=== PATIENT | female | born 1945 | race Caucasian/White ===

== ENCOUNTER → 2020-09-29 11:02 | Outpatient (BNVA) | payer OTHER, SELFPAY | PROVIDERS: PCP Internal Medicine; Visit Provider Family Medicine Adult Medicine ==

== ENCOUNTER 2020-09-30 09:26 | Outpatient (REF) | payer OTHER, SELFPAY | END 2020-09-30 09:27 | disposition home or self-care (01) | LOC: HO.LAB 09:26 | PROVIDERS: PCP Internal Medicine; Visit Provider Family Medicine Adult Medicine | DX: Z13.89 Encounter for screening for other disorder (principal) ==

== ENCOUNTER → 2020-10-15 08:43 | Outpatient (BNVA) | payer OTHER, SELFPAY | PROVIDERS: PCP Internal Medicine; Visit Provider Family Medicine Adult Medicine ==

== ENCOUNTER → 2020-10-29 11:00 | Outpatient (BNVA) | payer OTHER, SELFPAY | PROVIDERS: PCP Internal Medicine; Visit Provider Family Medicine Adult Medicine ==

== ENCOUNTER → 2020-11-26 08:28 | Outpatient (BNVA) | payer OTHER, SELFPAY | PROVIDERS: PCP Internal Medicine; Visit Provider Family Medicine Adult Medicine ==

== ENCOUNTER → 2020-12-24 08:55 | Outpatient (BNVA) | payer OTHER, SELFPAY | PROVIDERS: PCP Internal Medicine; Visit Provider Family Medicine Adult Medicine ==

== ENCOUNTER → 2021-01-28 08:54 | Outpatient (BNVA) | payer OTHER, SELFPAY | PROVIDERS: PCP Internal Medicine; Visit Provider Family Medicine Adult Medicine ==

== ENCOUNTER → 2021-02-26 08:21 | Outpatient (BNVA) | payer OTHER, SELFPAY | PROVIDERS: PCP Internal Medicine; Visit Provider Internal Medicine ==

== ENCOUNTER → 2021-03-26 08:27 | Outpatient (BNVA) | payer OTHER, SELFPAY | PROVIDERS: PCP Internal Medicine; Visit Provider Internal Medicine ==

== ENCOUNTER → 2021-04-23 08:46 | Outpatient (BNVA) | payer OTHER, SELFPAY | PROVIDERS: PCP Internal Medicine; Visit Provider Internal Medicine | DX: R00.2 Palpitations (principal); M54.16 Radiculopathy, lumbar region ==

== ENCOUNTER → 2021-05-21 08:56 | Outpatient (BNVA) | payer OTHER, SELFPAY | PROVIDERS: PCP Internal Medicine; Visit Provider Internal Medicine | DX: Z13.89 Encounter for screening for other disorder (principal) ==

== ENCOUNTER → 2021-05-24 09:30 | Outpatient (BNVA) | payer OTHER, SELFPAY | PROVIDERS: PCP Internal Medicine; Visit Provider Internal Medicine | DX: M54.16 Radiculopathy, lumbar region (principal) ==

== ENCOUNTER → 2021-06-14 15:32 | Outpatient (BNVA) | payer OTHER, SELFPAY | PROVIDERS: PCP Internal Medicine; Visit Provider Nurse Practitioner Family | DX: Z13.89 Encounter for screening for other disorder (principal) ==

== ENCOUNTER → 2021-06-21 08:54 | Outpatient (BNVA) | payer OTHER, SELFPAY | PROVIDERS: PCP Internal Medicine; Visit Provider Internal Medicine | DX: Z13.89 Encounter for screening for other disorder (principal) ==

== ENCOUNTER → 2021-07-23 08:58 | Outpatient (BNVA) | payer OTHER, SELFPAY | PROVIDERS: PCP Internal Medicine; Visit Provider Nurse Practitioner Family | DX: Z13.89 Encounter for screening for other disorder (principal) ==

== ENCOUNTER → 2021-09-17 09:10 | Outpatient (BNVA) | payer OTHER, SELFPAY | PROVIDERS: PCP Internal Medicine; Visit Provider Internal Medicine | DX: Z51.81 Encounter for therapeutic drug level monitoring (principal); Z79.899 Other long term (current) drug therapy | CPT/HCPCS: 99211 ==

== ENCOUNTER → 2022-01-07 08:58 | Outpatient (BNVA) | payer OTHER, SELFPAY | PROVIDERS: Visit Provider Internal Medicine | DX: Z51.81 Encounter for therapeutic drug level monitoring (principal); Z79.899 Other long term (current) drug therapy | CPT/HCPCS: 99211 ==

== ENCOUNTER → 2022-03-04 08:41 | Outpatient (BNVA) | payer OTHER, SELFPAY | PROVIDERS: Visit Provider Internal Medicine | DX: M47.816 Spondylosis without myelopathy or radiculopathy, lumbar region (principal) ==

== ENCOUNTER → 2022-04-01 08:53 | Outpatient (BNVA) | payer OTHER, SELFPAY | PROVIDERS: Visit Provider Internal Medicine | DX: Z13.89 Encounter for screening for other disorder (principal) ==

== ENCOUNTER → 2022-04-29 08:55 | Outpatient (BNVA) | payer OTHER, SELFPAY | PROVIDERS: Visit Provider Internal Medicine | DX: Z13.89 Encounter for screening for other disorder (principal) ==

== ENCOUNTER → 2022-05-27 08:57 | Outpatient (BNVA) | payer OTHER, SELFPAY | PROVIDERS: Visit Provider Internal Medicine | DX: Z13.89 Encounter for screening for other disorder (principal) ==

== ENCOUNTER → 2022-06-24 09:09 | Outpatient (BNVA) | payer OTHER, SELFPAY | PROVIDERS: Visit Provider Internal Medicine ==

== ENCOUNTER → 2022-07-22 09:22 | Outpatient (BNVA) | payer OTHER, SELFPAY | PROVIDERS: PCP Internal Medicine; Visit Provider Internal Medicine ==

== ENCOUNTER → 2022-08-19 08:21 | Outpatient (BNVA) | payer OTHER, SELFPAY | PROVIDERS: PCP Internal Medicine; Visit Provider Internal Medicine ==

== ENCOUNTER → 2022-09-16 09:01 | Outpatient (BNVA) | payer OTHER, SELFPAY | PROVIDERS: PCP Internal Medicine; Visit Provider Internal Medicine ==

== ENCOUNTER 2022-10-14 10:23 | Outpatient (AMB) | payer OTHER, SELFPAY ==
[2022-10-14 10:29] VITALS: BP 104/66; PULSE 67; RESP 14; O2SAT 98; BMI 18.2
--- NOTE | 2022-10-14 10:29 | A.OFFVIS_ITS ---
Intake Vital Signs 10/14/22 10:29 Height 5 ft 3 in Weight 103 lb BMI 18.2 BP 104/66 Blood Pressure Location Rt brachial Respiration 14 Pulse 67 Pulse Source Pulse Oximeter Pulse Oximetry (%) 98 Oxygen Delivery Method Room Air Intake Visit Reasons: Pill count Allergies codeine [CODEINE] Allergy (Unknown, Verified 10/14/22 10:30) NAUSEA & VOMITING Antihistamines - Alkylamine Adverse Reaction (Severe, Verified 10/14/22 10:30) heart palpitations Medication List - Last Reconciled 10/14/22 by Melinda Segovia LPN atorvastatin 20 mg PO DAILY calcium carbonate-vitamin D3 600 mg-10 mcg (400 unit) 1 tab PO BID citalopram (Celexa) 20 mg PO DAILY diltiazem HCl ER 120 mg PO DAILY flecainide 100 mg PO BID gabapentin 300 mg PO BEDTIME 30 days naloxone 4 mg/actuation (Narcan) 4 mg intranasal Q2M 1 day oxycodone 15 mg PO Q8H PRN 21 days HPI Pill count HPI Details 76-year-old female is presenting today for a pill count. 3 pills were expected, and 6 pills were presented. The patient is presenting today for a refill of medication. She reports back and neck pain that is bothersome. She has a history of cervical spondylosis. She visited her primary care physician, who recommended physical therapy, which she has not started. She has episodes of withdrawal symptoms between 5 PM and 9 PM in between the oxycodone doses. This is associated with significant pain exacerbation as well. She has been taking oxycodone for the past 20 years. She has a history of kidney disease and cognitive impairment and wants to wean down on oxycodone. She is interested in transitioning to buprenor phine if possible she was previously taking both oxycodone and buprenorphine 300 mcg twice daily prior to stopping the buprenorphine. She was tolerating it well on that dose. She would like to restart with the buprenorphine and rapid up prior to weaning down with the oxycodone to prevent any exacerbation of her pain symptoms. She continues to have reservations regarding interventional therapy due to cost limitations. [facility] Medical History (Updated 08/19/22 @ 09:39 by Victor Manuel Mckeon MD) Anxiety Arthritis Atrial tachycardia Clostridium difficile colitis Depression Fatigue Heart palpitations Insomnia Lumbar radiculitis Opioid dependence Osteoporosis Restless leg Restless legs syndrome (RLS) Surgical History History of creation of ostomy History of partial colectomy Family History Family/Other Alzheimer disease Social History Alcohol intake: never Patient Tobacco Use Status: Former Tobacco user Substance Use Type: Prescription Drugs Review of Systems Const All systems reviewed & are unremarkable except as noted in HPI and below Physical Exam Vital Signs: Last Vital Signs Pulse 67 10/14/22 10:29 Resp 14 10/14/22 10:29 BP 104/66 10/14/22 10:29 Pulse Ox 98 10/14/22 10:29 Oxygen Delivery Method Room Air 10/14/22 10:29 BMI result Body Mass Index 18.2 General: Appears afebrile. Alert and oriented. Mood and affect appropriate. Follows and participates in conversation appropriately. Respiratory effort is unlabored. Able to transition from sit to stand unassisted. Ambulates with bilaterally normal heel strike and toe off. Results Reviewed Results Reviewed: No imaging is available for review. 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 3 pills were expected, and 6 pills were presented. 2. Prescribed 60 films of the Belbuca 150 mcg b.i.d. and 90 tablets of the oxycodone 15 mg t.i.d. for pain management. Will consider increasing Belbuca to 300 mcg b.i.d. on next refill. 3. Pill count and Mass Pat was consistent. 4. The patient will follow up in four weeks for pill count on the nursing schedule. Scribed for Dr. Mckeon by Pablo Cohen, medical billing and coding specialist, on 10/14/2022. I, Dr. Mckeon, have personally reviewed and agree with the information entered by the scribe. Medications: New buprenorphine HCl 150 mcg buccal Q12H 60 ea 0RF Changed From oxycodone Partial Fill upon patient request. 15 mg PO Q8H 21 days PRN 63 tabs 0RF pain, severe G89.4 - Chronic pain syndrome, M54.16 - Radiculopathy, lumbar region To oxycodone Partial Fill upon patient request. 15 mg PO Q8H PRN 90 tabs 0RF pain, severe 30 days G89.4 - Chronic pain syndrome, M54.16 - Radiculopathy, lumbar region Coding Level of Care Code Est Pt Level 4 (00184) Diagnoses [facility] current use of opiate analgesic Z79.891 Pain syndrome, chronic G89.4
== END 2022-10-14 10:59 | disposition home or self-care (01) ==
PROVIDERS: PCP Internal Medicine; Visit Provider Internal Medicine
DX: G89.4 Chronic pain syndrome (principal); Z79.891 Long term (current) use of opiate analgesic
CPT/HCPCS: 99214

== ENCOUNTER → 2022-10-14 10:23 | Outpatient (BNVA) | payer OTHER, SELFPAY | PROVIDERS: PCP Internal Medicine; Visit Provider Internal Medicine ==

== ENCOUNTER 2022-11-11 10:08 | Outpatient (AMB) | payer OTHER, SELFPAY ==
[2022-11-11 10:15] VITALS: BP 136/61; PULSE 68; RESP 14; O2SAT 98; BMI 18.2
--- NOTE | 2022-11-11 10:15 | MHC.OFFVIS ---
Intake Vital Signs 11/11/22 10:15 Height 5 ft 3 in Weight 103 lb BMI 18.2 BP 136/61 Blood Pressure Location Lt brachial Position Sitting Respiration 14 Pulse 68 Pulse Source Pulse Oximeter Pulse Oximetry (%) 98 Oxygen Delivery Method Room Air Intake Visit Reasons: PILL COUNT/ random UDS Intake Note: Pt states she last took oxy 11/11/22 @ 5am, and Belbuca 11/10/22 @ 9pm. Pt is being sent for a random UDS. She is aware she will do this at the conclusion of todays visit Allergies codeine [CODEINE] Allergy (Unknown, Verified 11/11/22 10:16) NAUSEA & VOMITING Antihistamines - Alkylamine Adverse Reaction (Severe, Verified 11/11/22 10:16) heart palpitations Medication List - Last Reconciled 11/11/22 by Melinda Segovia LPN atorvastatin 20 mg PO DAILY buprenorphine HCl 150 mcg buccal Q12H calcium carbonate-vitamin D3 600 mg-10 mcg (400 unit) 1 tab PO BID citalopram (Celexa) 20 mg PO DAILY diltiazem HCl ER 120 mg PO DAILY flecainide 100 mg PO BID gabapentin 300 mg PO BEDTIME 30 days naloxone 4 mg/actuation (Narcan) 4 mg intranasal Q2M 1 day oxycodone 15 mg PO Q8H PRN 30 days HPI PILL COUNT/ random UDS HPI Details 76-year-old female who presents today to the office for a pill count and random UDS. 6 pills were expected, and 16 pills were presented of oxycodone. 4 films were expected, and 20 films were presented of belbuca. She seems to have tolerated the addition of Belbuca well and is amenable to titrating it up. She feels that her interval pain in between doses has decreased and she is feeling less of the withdrawal symptoms that she used to with oxycodone. [facility] Medical History (Updated 08/19/22 @ 09:39 by Victor Manuel Mckeon MD) Insomnia Restless legs syndrome (RLS) Clostridium difficile colitis Opioid dependence Depression Lumbar radiculitis Osteoporosis Atrial tachycardia Anxiety Fatigue Heart palpitations Arthritis Restless leg Surgical History History of creation of ostomy History of partial colectomy Family History Family/Other Alzheimer disease Social History Alcohol intake: never Patient Tobacco Use Status: Former Tobacco user Substance Use Type: Prescription Drugs Review of Systems Const All systems reviewed & are unremarkable except as noted in HPI and below Physical Exam Vital Signs: Last Vital Signs Pulse 68 11/11/22 10:15 Resp 14 11/11/22 10:15 BP 136/61 11/11/22 10:15 Pulse Ox 98 11/11/22 10:15 Oxygen Delivery Method Room Air 11/11/22 10:15 BMI result Body Mass Index 18.2 General: Appears afebrile. Alert and oriented. Mood and affect appropriate. Follows and participates in conversation appropriately. Respiratory effort is unlabored. Able to transition from sit to stand unassisted. Ambulates with bilaterally normal heel strike and toe off. Results Reviewed Results Reviewed: No imaging is available for review. 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 Pill count and Mass Pat was consistent. No recent changes in health. Follow-up per schedule for pill count and refills. Scribed for Dr. Mckeon by Pablo Cohen, medical reviewer, on 11/11/2022. I, Dr. Mckeon, have personally reviewed and agree with the information entered by the scribe. Medications: New buprenorphine HCl Fill date 11/14/22, partial fill ok 300 mcg buccal Q12H 60 ea 0RF Refilled oxycodone Partial Fill upon patient request. 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
== END 2022-11-11 10:41 | disposition home or self-care (01) ==
PROVIDERS: PCP Internal Medicine; Visit Provider Internal Medicine
DX: G89.4 Chronic pain syndrome (principal); Z79.891 Long term (current) use of opiate analgesic
CPT/HCPCS: 99213

== ENCOUNTER → 2022-11-11 10:08 | Outpatient (BNVA) | payer OTHER, SELFPAY | PROVIDERS: PCP Internal Medicine; Visit Provider Internal Medicine ==

== ENCOUNTER 2022-12-05 08:47 | Outpatient (AMB) | payer OTHER, SELFPAY ==
--- NOTE | 2022-12-05 08:56 | MHC.OFFVIS ---
Intake Vital Signs 12/05/22 08:57 Height 5 ft 3 in Weight 103 lb BMI 18.2 Blood Pressure Location Lt brachial Position Sitting Respiration 14 Pulse 71 Pulse Source Pulse Oximeter Pulse Oximetry (%) 95 Oxygen Delivery Method Room Air Intake Visit Reasons: pill count/UDS review Intake Note: Pt states she last took belbuca 12/04/22 @ 10pm and oxy 12/05/22 @ 5am Allergies codeine [CODEINE] Allergy (Unknown, Verified 12/05/22 08:58) NAUSEA & VOMITING Antihistamines - Alkylamine Adverse Reaction (Severe, Verified 12/05/22 08:58) heart palpitations Medication List - Last Reconciled 12/05/22 by Melinda Segovia LPN atorvastatin 20 mg PO DAILY buprenorphine HCl 300 mcg buccal Q12H calcium carbonate-vitamin D3 600 mg-10 mcg (400 unit) 1 tab PO BID citalopram (Celexa) 20 mg PO DAILY diltiazem HCl ER 120 mg PO DAILY flecainide 100 mg PO BID gabapentin 300 mg PO BEDTIME 30 days naloxone 4 mg/actuation (Narcan) 4 mg intranasal Q2M 1 day oxycodone 15 mg PO Q8H PRN 30 days HPI pill count/UDS review HPI Details 77-year-old female who presents today to the office for a pill count. 27 pills were expected, and 30 pills were presented of oxycodone. 18 films were expected, and 19 films were presented of belbuca. The patient notes mild fatigue and increased tiredness since starting buprenorphine. She is taking Belbuca and oxycodone at the same time. Her withdrawal symptoms have resolved. Her restless leg syndrome symptom have also improved. She also had an episode of a nightmare, which is something new she has been experiencing lately. Her drug screen was within normal limits. [facility] Medical History (Updated 08/19/22 @ 09:39 by Victor Manuel Mckeon MD) Insomnia Restless legs syndrome (RLS) Clostridium difficile colitis Opioid dependence Depression Lumbar radiculitis Osteoporosis Atrial tachycardia Anxiety Fatigue Heart palpitations Arthritis Restless leg Surgical History History of creation of ostomy History of partial colectomy Family History Family/Other Alzheimer disease Social History Alcohol intake: never Patient Tobacco Use Status: Former Tobacco user Substance Use Type: Prescription Drugs Review of Systems Const All systems reviewed & are unremarkable except as noted in HPI and below Physical Exam Vital Signs: Last Vital Signs Pulse 71 12/05/22 08:57 Resp 14 12/05/22 08:57 Pulse Ox 95 12/05/22 08:57 Oxygen Delivery Method Room Air 12/05/22 08:57 BMI result Body Mass Index 18.2 General: Appears afebrile. Alert and oriented. Mood and affect appropriate. Follows and participates in conversation appropriately. Respiratory effort is unlabored. Able to transition from sit to stand unassisted. Ambulates with bilaterally normal heel strike and toe off. Results Reviewed Results Reviewed: No imaging is available for review. 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 18 films were expected, and 19 films were presented of belbuca. Mass Pat and UDS were consistent. Refilled oxycodone 15 mg T.I.D and Belbuca 300 mcg B.I.D. starting 12/14/2022. Given the balance of mild side effects and improvement in withdrawal/are less symptoms, we will continue with the 300 mcg Belbuca dose for now. No recent changes in health. Follow-up in four weeks for pill count and refills. Scribed for Dr. Mckeon by Pablo Cohen, medical driver, on 12/05/2022. I, Dr. Mckeon, have personally reviewed and agree with the information entered by the scribe. Medications: Changed From buprenorphine HCl Fill date 11/14/22, partial fill ok 300 mcg buccal Q12H 60 ea 0RF To buprenorphine HCl Fill date 12/14/22, partial fill ok 300 mcg buccal Q12H 60 ea 0RF From oxycodone Partial Fill upon patient request. 15 mg PO Q8H 30 days PRN 90 tabs 0RF pain, severe G89.4 - Chronic pain syndrome, M54.16 - Radiculopathy, lumbar region To oxycodone Partial Fill upon patient request. 15 mg PO Q8H 30 days PRN 90 tabs 0RF pain, severe G89.4 - Chronic pain syndrome, M54.16 - Radiculopathy, lumbar region Refilled oxycodone Partial Fill upon patient request. 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
[2022-12-05 08:57] VITALS: PULSE 71; RESP 14; O2SAT 95; BMI 18.2
== END 2022-12-05 09:16 | disposition home or self-care (01) ==
PROVIDERS: PCP Internal Medicine; Visit Provider Internal Medicine
DX: Z79.891 Long term (current) use of opiate analgesic (principal)
CPT/HCPCS: 99213

== ENCOUNTER → 2022-12-05 08:47 | Outpatient (BNVA) | payer OTHER, SELFPAY | PROVIDERS: PCP Internal Medicine; Visit Provider Internal Medicine ==

== ENCOUNTER 2023-01-02 08:54 | Outpatient (AMB) | payer OTHER, SELFPAY ==
[2023-01-02 09:07] VITALS: BMI 18.1
--- NOTE | 2023-01-02 09:07 | A.OFFVIS_ITS ---
Intake Vital Signs 01/02/23 09:07 Height 5 ft 3 in Weight 102 lb BMI 18.1 Intake Visit Reasons: Medication Count/confirmed Allergies codeine [CODEINE] Allergy (Unknown, Verified 12/05/22 08:58) NAUSEA & VOMITING Antihistamines - Alkylamine Adverse Reaction (Severe, Verified 12/05/22 08:58) heart palpitations HPI Medication Count/confirmed HPI Details 77-year-old female who presents today to the office for a medication count. 33 pills were expected, and 32 pills wer e presented of oxycodone. 24 films were expected, and 28 films wer e presented of belbuca. She is compliant with her medication and tolerating it well. She is overall doing well. She states that medication helps her to take the edge off. She states that Belbuca helps her with withdrawal symptoms and anxiety. She is also interested in trialing off gabapentin to see if it helps with her word-finding difficulty. She noticed occasional confusion, difficulty completing tasks, or difficulty finding words during conversation. She suspects that her symptoms are associated with her old age. [facility] Medical History (Updated 08/19/22 @ 09:39 by Victor Manuel Mckeon MD) Insomnia Restless legs syndrome (RLS) Clostridium difficile colitis Opioid dependence Depression Lumbar radiculitis Osteoporosis Atrial tachycardia Anxiety Fatigue Heart palpitations Arthritis Restless leg Surgical History History of creation of ostomy History of partial colectomy Family History Family/Other Alzheimer disease Social History Alcohol intake: never Patient Tobacco Use Status: Former Tobacco user Substance Use Type: Prescription Drugs Review of Systems Const All systems reviewed & are unremarkable except as noted in HPI and below Physical Exam Vital Signs: BMI result Body Mass Index 18.1 General: Appears afebrile. Alert and oriented. Mood and affect appropriate. Follows and participates in conversation appropriately. Respiratory effort is unlabored. Able to transition from sit to stand unassisted. Ambulates with bilaterally normal heel strike and toe off. Results Reviewed Results Reviewed: No imaging is available for review. 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 24 films were expected, and 28 films were presented of belbuca. Mass Pat and UDS were consistent. Refilled oxycodone 15 mg T.I.D and Belbuca 300 mcg B.I.D. starting 12/14/22 . Follow-up in four weeks for pill count and refills. Also refilled gabapentin; patient will hold off for 1 week and see how she does in terms of her mental alertness and pain control. She will fill her gabapentin if she feels that stopping it increases her pain and does not make a difference to her mental alertness. Scribed for Dr. Mckeon by Pablo Cohen, internist medical doctor md, on 01/02/2023. I, Dr. Mckeon, have personally reviewed and agree with the information entered by the scribe. Medications: Changed From buprenorphine HCl Fill date 12/14/22, partial fill ok 300 mcg buccal Q12H 60 ea 0RF To buprenorphine HCl Fill date 01/14/23, partial fill ok 300 mcg buccal Q12H 60 ea 0RF Refilled 2 gabapentin 1 cap at 10pm , 1 cap at 11.30 pm 300 mg PO BEDTIME 60 caps 5RF pain 30 days F11.20 - Opioid dependence, uncomplicated, G25.81 - Restless legs syndrome, G89.4 - Chronic pain syndrome, M54.16 - Radiculopathy, lumbar region buprenorphine HCl Fill date 12/14/22, partial fill ok 300 mcg buccal Q12H 60 ea 0RF oxycodone Partial Fill upon patient request. 15 mg PO Q8H PRN 90 tabs 0RF pain, severe 30 days G89.4 - Chronic pain syndrome, M54.16 - Radiculopathy, lumbar region Coding Level of Care Code Est Pt Level 4 (16040) Diagnoses long-term current use of opiate analgesic Z79.891 Restless legs syndrome (RLS) G25.81 Chronic left sacroiliac pain M53.3; G89.29 Lumbar spondylosis M47.816
== END 2023-01-02 09:25 | disposition home or self-care (01) ==
PROVIDERS: PCP Internal Medicine; Visit Provider Internal Medicine
DX: G25.81 Restless legs syndrome (principal); M53.3 Sacrococcygeal disorders, not elsewhere classified; G89.29 Other chronic pain; Z79.891 Long term (current) use of opiate analgesic; M47.816 Spondylosis without myelopathy or radiculopathy, lumbar region
CPT/HCPCS: 99214

== ENCOUNTER → 2023-01-02 08:54 | Outpatient (BNVA) | payer OTHER, SELFPAY | PROVIDERS: PCP Internal Medicine; Visit Provider Internal Medicine ==

== ENCOUNTER 2023-01-30 09:31 | Outpatient (AMB) | payer OTHER, SELFPAY ==
[2023-01-30 09:36] VITALS: PULSE 74; RESP 12; O2SAT 98; BMI 18.1
--- NOTE | 2023-01-30 09:36 | MHC.OFFVIS ---
Intake Vital Signs 01/30/23 09:36 Height 5 ft 3 in Weight 102 lb BMI 18.1 Blood Pressure Location Lt brachial Position Sitting Respiration 12 Pulse 74 Pulse Source Pulse Oximeter Pulse Oximetry (%) 98 Oxygen Delivery Method Room Air Intake Visit Reasons: Medication Count/LMOVM Allergies codeine [CODEINE] Allergy (Unknown, Verified 12/05/22 08:58) NAUSEA & VOMITING Antihistamines - Alkylamine Adverse Reaction (Severe, Verified 12/05/22 08:58) heart palpitations HPI Medication Count/LMOVM HPI Details 77-year-old female who presents today to the office for a medication count. The pills count was consistent. She had good relief after starting Belbuca, but after some time, its not working well. She had withdrawal symptoms. Her restless leg syndrome worsened. She is currently on Belbuca as directed and an oxycodone half tablet as needed. She occasionally takes gabapentin as needed. The patient states that her pain is the same as before. She tried discontinuing gabapentin, and her dizziness and balance issues improved. [facility] Medical History (Updated 08/19/22 @ 09:39 by Victor Manuel Mckeon MD) Insomnia Restless legs syndrome (RLS) Clostridium difficile colitis Opioid dependence Depression Lumbar radiculitis Osteoporosis Atrial tachycardia Anxiety Fatigue Heart palpitations Arthritis Restless leg Surgical History History of creation of ostomy History of partial colectomy Family History Family/Other Alzheimer disease Social History Alcohol intake: never Patient Tobacco Use Status: Former Tobacco user Substance Use Type: Prescription Drugs Review of Systems Const All systems reviewed & are unremarkable except as noted in HPI and below Physical Exam Vital Signs: Last Vital Signs Pulse 74 01/30/23 09:36 Resp 12 01/30/23 09:36 Pulse Ox 98 01/30/23 09:36 Oxygen Delivery Method Room Air 01/30/23 09:36 BMI result Body Mass Index 18.1 General: Appears afebrile. Alert and oriented. Mood and affect appropriate. Follows and participates in conversation appropriately. Respiratory effort is unlabored. Able to transition from sit to stand unassisted. Ambulates with bilaterally normal heel strike and toe off. Results Reviewed Results Reviewed: No imaging is available for review. 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 Mass Pat and UDS were consistent. Refilled oxycodone 15 mg T.I.D. Increased Belbuca to 450 mcg B.I.D. Follow-up in four weeks for pill count and refills. Monitor for psychologic side effects. Agree with intermittent gabapentin as needed. Scribed for Dr. Mckeon by Pablo Cohen, medical sales consultant, on 01/30/2023. I, Dr. Mckeon, have personally reviewed and agree with the information entered by the scribe. Medications: New buprenorphine HCl Fill date 02/15/23 450 mcg buccal Q12H 60 ea 0RF Refilled oxycodone Partial Fill upon patient request. 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
== END 2023-01-30 09:48 | disposition home or self-care (01) ==
PROVIDERS: PCP Internal Medicine; Visit Provider Internal Medicine
DX: G25.81 Restless legs syndrome (principal); M47.816 Spondylosis without myelopathy or radiculopathy, lumbar region; M47.812 Spondylosis without myelopathy or radiculopathy, cervical region; Z79.891 Long term (current) use of opiate analgesic
CPT/HCPCS: 99214

== ENCOUNTER → 2023-01-30 09:31 | Outpatient (BNVA) | payer OTHER, SELFPAY | PROVIDERS: PCP Internal Medicine; Visit Provider Internal Medicine ==

== ENCOUNTER 2023-02-27 08:58 | Outpatient (AMB) | payer OTHER, SELFPAY ==
[2023-02-27 09:21] VITALS: BP 129/67; PULSE 76; RESP 12; O2SAT 97; BMI 18.1
--- NOTE | 2023-02-27 09:21 | MHC.OFFVIS ---
Intake Vital Signs 02/27/23 09:21 Height 5 ft 3 in Weight 102 lb BMI 18.1 BP 129/67 Blood Pressure Location Lt brachial Position Sitting Respiration 12 Pulse 76 Pulse Source Pulse Oximeter Pulse Oximetry (%) 97 Oxygen Delivery Method Room Air Intake Visit Reasons: Medication Count/lvm Intake Note: Pt states she last took oxy 02/27/23 @ 4am, and belbuca 02/26/23 @ 11pm Allergies codeine [CODEINE] Allergy (Unknown, Verified 02/27/23 09:23) NAUSEA & VOMITING Antihistamines - Alkylamine Adverse Reaction (Severe, Verified 02/27/23 09:23) heart palpitations Medication List - Last Reconciled 02/27/23 by Melinda Segovia LPN atorvastatin 20 mg PO DAILY buprenorphine HCl 450 mcg buccal Q12H calcium carbonate-vitamin D3 600 mg-10 mcg (400 unit) 1 tab PO BID citalopram (Celexa) 20 mg PO DAILY diltiazem HCl ER 120 mg PO DAILY flecainide 100 mg PO BID gabapentin 300 mg PO BEDTIME 30 days naloxone 4 mg/actuation (Narcan) 4 mg intranasal Q2M 1 day oxycodone 15 mg PO Q8H PRN 30 days HPI Medication Count/lvm HPI Details 77-year-old female who presents today to the office for a medication count. 48 pills were expected, and 47 pills were presented of oxycodone. 38 films were expected, and 40 films were presented of belbuca. The patient has been feeling more tired and confused since starting the new dose of belbuca. She is continuing oxycodone T.I.D.. She inquired about trying buprenorphine alternatives instead of an oral Belbuca given some recent issues with dental fillings falling out and tooth decay. She has been following up with her dentist regularly. [facility] Medical History (Updated 08/19/22 @ 09:39 by Victor Manuel Mckeon MD) Insomnia Restless legs syndrome (RLS) Clostridium difficile colitis Opioid dependence Depression Lumbar radiculitis Osteoporosis Atrial tachycardia Anxiety Fatigue Heart palpitations Arthritis Restless leg Surgical History History of creation of ostomy History of partial colectomy Family History Family/Other Alzheimer disease Social History Alcohol intake: never Patient Tobacco Use Status: Former Tobacco user Substance Use Type: Prescription Drugs Review of Systems Const All systems reviewed & are unremarkable except as noted in HPI and below Physical Exam Vital Signs: Last Vital Signs Pulse 76 02/27/23 09:21 Resp 12 02/27/23 09:21 BP 129/67 02/27/23 09:21 Pulse Ox 97 02/27/23 09:21 Oxygen Delivery Method Room Air 02/27/23 09:21 BMI result Body Mass Index 18.1 General: Appears afebrile. Alert and oriented. Mood and affect appropriate. Follows and participates in conversation appropriately. Respiratory effort is unlabored. Able to transition from sit to stand unassisted. Ambulates with bilaterally normal heel strike and toe off. Results Reviewed Results Reviewed: No imaging is available for review. 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 Code(s): F11.20 - Opioid dependence, uncomplicated (4) Lumbar spondylosis: Code(s): M47.816 - Spondylosis without myelopathy or radiculopathy, lumbar region (5) Chronic left sacroiliac pain: Code(s): M53.3 - Sacrococcygeal disorders, not elsewhere classified; G89.29 - Other chronic pain Plan 48 pills were expected, and 47 pills were presented of oxycodone. 38 films were expected, and 40 films were presented of belbuca. Mass Pat and UDS were consistent. Refilled oxycodone 15 mg T.I.D starting 03/16. Replace Belbuca 450 mcg q.12 hours with Butrans 10 microgram/hour patch. Prescribed 4 patches starting 03/16. Scribed for Dr. Mckeon by Pablo Cohen, medical engineer, on 02/27/2022. I, Dr. Mckeon, have personally reviewed and agree with the information entered by the scribe. Medications: New buprenorphine 10 mcg/hour (Butrans) 1 patch transdermal Q7D 4 ea 0RF Refilled oxycodone Partial Fill upon patient request. 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
== END 2023-02-27 09:57 | disposition home or self-care (01) ==
PROVIDERS: PCP Internal Medicine; Visit Provider Internal Medicine
DX: G89.29 Other chronic pain (principal); Z79.891 Long term (current) use of opiate analgesic; M47.816 Spondylosis without myelopathy or radiculopathy, lumbar region; M47.812 Spondylosis without myelopathy or radiculopathy, cervical region; M53.3 Sacrococcygeal disorders, not elsewhere classified
CPT/HCPCS: 99214

== ENCOUNTER → 2023-02-27 08:58 | Outpatient (BNVA) | payer OTHER, SELFPAY | PROVIDERS: PCP Internal Medicine; Visit Provider Internal Medicine ==

== ENCOUNTER 2023-03-27 09:13 | Outpatient (AMB) | payer OTHER, SELFPAY ==
--- NOTE | 2023-03-27 09:29 | MHC.OFFVIS ---
Intake Vital Signs 03/27/23 09:30 Height 5 ft 3 in Weight 104 lb BMI 18.4 BP 119/60 Blood Pressure Location Lt brachial Position Sitting Respiration 12 Pulse 83 Pulse Source Pulse Oximeter Pulse Oximetry (%) 96 Oxygen Delivery Method Room Air Intake Visit Reasons: PILL COUNT/lvm Intake Note: Pt states she last took oxy 03/27/23 @ 7am, and is currently wearing a patch Allergies codeine [CODEINE] Allergy (Unknown, Verified 03/27/23 09:31) NAUSEA & VOMITING Antihistamines - Alkylamine Adverse Reaction (Severe, Verified 03/27/23 09:31) heart palpitations Medication List - Last Reconciled 03/27/23 by Melinda Segovia LPN atorvastatin 20 mg PO DAILY buprenorphine 15 mcg/hour (Butrans) 1 patch transdermal Q7D calcium carbonate-vitamin D3 600 mg-10 mcg (400 unit) 1 tab PO BID citalopram (Celexa) 20 mg PO DAILY diltiazem HCl ER 120 mg PO DAILY flecainide 100 mg PO BID gabapentin 300 mg PO BEDTIME 30 days naloxone 4 mg/actuation (Narcan) 4 mg intranasal Q2M 1 day oxycodone 15 mg PO Q8H PRN 30 days HPI PILL COUNT/lvm HPI Details 77-year-old female who presents today to the office for a pill count. 54 pills were expected, and 53 pills were presented of oxycodone. 2 patches were expected, and 2 patches were presented of Butrans. She has started taking Butrans. She noticed an increased memory/cognition side effect after taking Butrans compared to Belbuca. She also noticed red discoloration of the skin after applying the topical patch for the first time, which eventually resolved on its own. She has difficulty voiding. She had diarrhea last week. She had a history of C. diff and had an ileostomy about 8 years ago. She does not want to increase the dose of Butrans and oxycodone. [facility] Medical History (Updated 08/19/22 @ 09:39 by Victor Manuel Mckeon MD) Insomnia Restless legs syndrome (RLS) Clostridium difficile colitis Opioid dependence Depression Lumbar radiculitis Osteoporosis Atrial tachycardia Anxiety Fatigue Heart palpitations Arthritis Restless leg Surgical History History of creation of ostomy History of partial colectomy Family History Family/Other Alzheimer disease Social History Alcohol intake: never Patient Tobacco Use Status: Former Tobacco user Substance Use Type: Prescription Drugs Review of Systems Const All systems reviewed & are unremarkable except as noted in HPI and below Physical Exam Vital Signs: Last Vital Signs Pulse 83 03/27/23 09:30 Resp 12 03/27/23 09:30 BP 119/60 03/27/23 09:30 Pulse Ox 96 03/27/23 09:30 Oxygen Delivery Method Room Air 03/27/23 09:30 BMI result Body Mass Index 18.4 General: Appears afebrile. Alert and oriented. Mood and affect appropriate. Follows and participates in conversation appropriately. Respiratory effort is unlabored. Able to transition from sit to stand unassisted. Ambulates with bilaterally normal heel strike and toe off. Results Reviewed Results Reviewed: No imaging is available for review. 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 Code(s): F11.20 - Opioid dependence, uncomplicated Plan 54 pills were expected, and 53 pills were presented of oxycodone. 2 patches were expected, and 2 patches were presented of Butrans. Mass Pat was consistent. Refilled oxycodone 15 mg T.I.D and Butrans 15 microgram/hour patch; starting 04/14/23. I do not think we should increase her dosage of either medication at this time. The patient is in agreement. Scribed for Dr. Mckeon by Pablo Cohen, medical office supervisor, on 03/27/2023. I, Dr. Mckeon, have personally reviewed and agree with the information entered by the scribe. Medications: Changed From buprenorphine 15 mcg/hour (Butrans) 1 patch transdermal Q7D 4 ea 0RF To buprenorphine 15 mcg/hour (Butrans) Fill date 04/14/23 1 patch transdermal QWEEK 4 ea 0RF Refilled oxycodone Partial Fill upon patient request. 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
[2023-03-27 09:30] VITALS: BP 119/60; PULSE 83; RESP 12; O2SAT 96; BMI 18.4
== END 2023-03-27 09:45 | disposition home or self-care (01) ==
PROVIDERS: PCP Internal Medicine; Visit Provider Internal Medicine
DX: G89.29 Other chronic pain (principal); M53.3 Sacrococcygeal disorders, not elsewhere classified; M47.816 Spondylosis without myelopathy or radiculopathy, lumbar region; Z79.891 Long term (current) use of opiate analgesic; M47.812 Spondylosis without myelopathy or radiculopathy, cervical region
CPT/HCPCS: 99214

== ENCOUNTER → 2023-03-27 09:13 | Outpatient (BNVA) | payer OTHER, SELFPAY | PROVIDERS: PCP Internal Medicine; Visit Provider Internal Medicine ==

== ENCOUNTER 2023-04-24 09:27 | Outpatient (AMB) | payer OTHER, SELFPAY ==
--- NOTE | 2023-04-24 09:28 | MHC.OFFVIS ---
Intake Vital Signs 04/24/23 09:30 Height 5 ft 3 in Weight 104 lb BMI 18.4 BP 134/64 Blood Pressure Location Lt brachial Position Sitting Respiration 12 Pulse 79 Pulse Source Pulse Oximeter Pulse Oximetry (%) 99 Oxygen Delivery Method Room Air Intake Visit Reasons: PILL COUNT Intake Note: Pt states she is currently wearing a patch, and lst took oxy 04/24/23 @ 6am Allergies codeine [CODEINE] Allergy (Unknown, Verified 04/24/23 09:32) NAUSEA & VOMITING Antihistamines - Alkylamine Adverse Reaction (Severe, Verified 04/24/23 09:32) heart palpitations Medication List - Last Reconciled 04/24/23 by Melinda Segovia LPN atorvastatin 20 mg PO DAILY buprenorphine 15 mcg/hour (Butrans) 1 patch transdermal QWEEK calcium carbonate-vitamin D3 600 mg-10 mcg (400 unit) 1 tab PO BID citalopram (Celexa) 20 mg PO DAILY diltiazem HCl ER 120 mg PO DAILY flecainide 100 mg PO BID gabapentin 300 mg PO BEDTIME 30 days naloxone 4 mg/actuation (Narcan) 4 mg intranasal Q2M 1 day oxycodone 15 mg PO Q8H PRN 30 days HPI PILL COUNT HPI Details 77-year-old female who presents today to the office for a pill count. 60 pills were expected, and 59 pills were presented of oxycodone. 3 patches were expected, and 2 patches were presented of Butrans. She states that her pharmacy delayed filling her refills, and she has to wait for 3?4 days to receive a new refill. She suspects that oxycodone suppresses the Butrans. She noticed side effects and allergic reactions with the use of Butrans, including skin reaction, palpitations, cold sore, stress, and the worsening of her depression and forgetfulness. She is unable to lay down on her back. She also reports neck pain. She has not tried dilaudid in the past. [facility] Medical History (Updated 08/19/22 @ 09:39 by Victor Manuel Mckeon MD) Insomnia Restless legs syndrome (RLS) Clostridium difficile colitis Opioid dependence Depression Lumbar radiculitis Osteoporosis Atrial tachycardia Anxiety Fatigue Heart palpitations Arthritis Restless leg Surgical History History of creation of ostomy History of partial colectomy Family History Family/Other Alzheimer disease Social History Alcohol intake: never Patient Tobacco Use Status: Former Tobacco user Substance Use Type: Prescription Drugs Review of Systems Const All systems reviewed & are unremarkable except as noted in HPI and below Physical Exam Vital Signs: Last Vital Signs Pulse 79 04/24/23 09:30 Resp 12 04/24/23 09:30 BP 134/64 04/24/23 09:30 Pulse Ox 99 04/24/23 09:30 Oxygen Delivery Method Room Air 04/24/23 09:30 BMI result Body Mass Index 18.4 General: Appears afebrile. Alert and oriented. Mood and affect appropriate. Follows and participates in conversation appropriately. Respiratory effort is unlabored. Able to transition from sit to stand unassisted. Ambulates with bilaterally normal heel strike and toe off. Results Reviewed Results Reviewed: No imaging is available for review. 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 Code(s): F11.20 - Opioid dependence, uncomplicated (3) Pain syndrome, chronic: Code(s): G89.4 - Chronic pain syndrome Plan 60 pills were expected, and 59 pills of oxycodone were presented. 3 patches were expected, and 2 patches were presented for Butrans. Mass Pat was consistent. Refilled oxycodone 15 mg T.I.D. Recommended that she discontinue taking Butrans due to allergies and side effects without any noticeable relief. She will continue with the same dose of oxycodone for now. We will follow up in one month. Discussed rotation to Dilaudid in the future given the lack of relief from her oxycodone. Scribed for Dr. Mckeon by Pablo Cohen, medical pathologist, on 04/24/2023. I, Dr. Mckeon, have personally reviewed and agree with the information entered by the scribe. Medications: Refilled oxycodone Partial Fill upon patient request. 15 mg PO Q8H PRN 90 tabs 0RF pain, severe 30 days G89.4 - Chronic pain syndrome, M54.16 - Radiculopathy, lumbar region Discontinued buprenorphine 15 mcg/hour (Butrans) Fill date 04/14/23 Discontinued Reason: Patient Completed Course 1 patch transdermal QWEEK 4 ea 0RF Coding Level of Care Code Est Pt Level 4 (10034) Diagnoses [facility] current use of opiate analgesic Z79.891 Opioid dependence F11.20 Pain syndrome, chronic G89.4
[2023-04-24 09:30] VITALS: BP 134/64; PULSE 79; RESP 12; O2SAT 99; BMI 18.4
== END 2023-04-24 09:49 | disposition home or self-care (01) ==
PROVIDERS: PCP Internal Medicine; Visit Provider Internal Medicine
DX: G89.4 Chronic pain syndrome (principal); Z79.891 Long term (current) use of opiate analgesic
CPT/HCPCS: 99214

== ENCOUNTER → 2023-04-24 09:27 | Outpatient (BNVA) | payer OTHER, SELFPAY | PROVIDERS: PCP Internal Medicine; Visit Provider Internal Medicine ==

== ENCOUNTER 2023-05-22 09:36 | Outpatient (AMB) | payer OTHER, SELFPAY ==
[2023-05-22 09:44] VITALS: BP 136/64; PULSE 79; RESP 12; O2SAT 99; BMI 18.4
--- NOTE | 2023-05-22 09:44 | A.OFFVIS_ITS ---
Vital Signs 05/22/23 09:44 Height 5 ft 3 in Weight 104 lb BMI 18.4 BP 136/64 Blood Pressure Location Rt brachial Position Sitting Respiration 12 Pulse 79 Pulse Source Pulse Oximeter Pulse Oximetry (%) 99 Oxygen Delivery Method Room Air Intake Visit Reasons: PILL COUNT Intake Note: Pt states she last took oxy 05/22/23 @ 4am Allergies codeine [CODEINE] Allergy (Unknown, Verified 05/22/23 09:45) NAUSEA & VOMITING Antihistamines - Alkylamine Adverse Reaction (Severe, Verified 05/22/23 09:45) heart palpitations Medication List - Last Reconciled 05/22/23 by Melinda Segovia LPN atorvastatin 20 mg PO DAILY calcium carbonate-vitamin D3 600 mg-10 mcg (400 unit) 1 tab PO BID citalopram (Celexa) 20 mg PO DAILY diltiazem HCl ER 120 mg PO DAILY flecainide 100 mg PO BID gabapentin 300 mg PO BEDTIME 30 days naloxone 4 mg/actuation (Narcan) 4 mg intranasal Q2M 1 day oxycodone 15 mg PO Q8H PRN 30 days HPI HPI PILL COUNT: Details: 77-year-old female who presents today to the office for a pill count. 66 pills were expected, and 72 pills were presented of oxycodone. The patient was admitted to [facility] from 05/04/23 to 05/08/23 for cellulitis of the left index finger following the squirrel bite. She has undergone multiple rounds of debridement, and it is still being seen by the hand surgeon. She was prescribed additional pain medications by her surgeon. She has been taking an addition to the script that we have been giving her for her usual pain. She is left-handed and unable to perform her ADLs. She has concerns about the withdrawal symptoms. [facility] Medical History (Updated 08/19/22 @ 09:39 by Victor Manuel Mckeon MD) Insomnia Restless legs syndrome (RLS) Clostridium difficile colitis Opioid dependence Depression Lumbar radiculitis Osteoporosis Atrial tachycardia Anxiety Fatigue Heart palpitations Arthritis Restless leg Surgical History History of creation of ostomy History of partial colectomy Family History Family/Other Alzheimer disease Social History Alcohol intake: never Patient Tobacco Use Status: Former Tobacco user Substance Use Type: Prescription Drugs Review of Systems Const All systems reviewed & are unremarkable except as noted in HPI and below Physical Exam Vital Signs: Last Vital Signs Pulse 79 05/22/23 09:44 Resp 12 05/22/23 09:44 BP 136/64 05/22/23 09:44 Pulse Ox 99 05/22/23 09:44 Oxygen Delivery Method Room Air 05/22/23 09:44 BMI result Body Mass Index 18.4 General: Appears afebrile. Alert and oriented. Mood and affect appropriate. Follows and participates in conversation appropriately. Respiratory effort is unlabored. Able to transition from sit to stand unassisted. Ambulates with bilaterally normal heel strike and toe off. Results Reviewed Results Reviewed: No imaging is available for review. 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 Code(s): F11.20 - Opioid dependence, uncomplicated Category: Medical Plan 66 pills were expected, and 72 pills were presented. Pill count and Mass Pat was consistent. Refill hydromorphone 2mg (1/2 x 4 mg) PO Q6H PRN. Patient will follow up in one month for pill count and refill. Scribed for Dr. Mckeon by Pablo Cohen, medical photographer, on 05/22/2023. I, Dr. Mckeon, have personally reviewed and agree with the information entered by the scribe. Medications: New hydromorphone Partial Fill upon patient request. 2 mg (1/2 x 4 mg) PO Q6H PRN 60 tabs 0RF pain hydromorphone Partial Fill upon patient request. 4 mg PO Q8H PRN 90 tabs 0RF pain
== END 2023-05-22 10:32 | disposition home or self-care (01) ==
PROVIDERS: PCP Internal Medicine; Visit Provider Internal Medicine
DX: G89.4 Chronic pain syndrome (principal); Z79.891 Long term (current) use of opiate analgesic
CPT/HCPCS: 99213

== ENCOUNTER → 2023-05-22 09:36 | Outpatient (BNVA) | payer OTHER, SELFPAY | PROVIDERS: PCP Internal Medicine; Visit Provider Internal Medicine ==

== ENCOUNTER 2023-06-19 10:03 | Outpatient (AMB) | payer OTHER, SELFPAY ==
[2023-06-19 10:09] VITALS: BP 121/68; PULSE 79; RESP 14; O2SAT 97; BMI 17.7
--- NOTE | 2023-06-19 10:09 | MHC.OFFVIS ---
Vital Signs 06/19/23 10:09 Height 5 ft 3 in Weight 100 lb BMI 17.7 BP 121/68 Blood Pressure Location Lt brachial Position Sitting Respiration 14 Pulse 79 Pulse Source Pulse Oximeter Pulse Oximetry (%) 97 Oxygen Delivery Method Room Air Intake Visit Reasons: PILL COUNT Intake Note: Pt states she last took oxcy 06/19/23 @ 5am Allergies codeine [CODEINE] Allergy (Unknown, Verified 06/19/23 10:10) NAUSEA & VOMITING Antihistamines - Alkylamine Adverse Reaction (Severe, Verified 06/19/23 10:10) heart palpitations Medication List - Last Reconciled 06/19/23 by Melinda Segovia LPN atorvastatin 20 mg PO DAILY calcium carbonate-vitamin D3 600 mg-10 mcg (400 unit) 1 tab PO BID citalopram (Celexa) 20 mg PO DAILY diltiazem HCl ER 120 mg PO DAILY flecainide 100 mg PO BID gabapentin 300 mg PO BEDTIME 30 days naloxone 4 mg/actuation (Narcan) 4 mg intranasal Q2M 1 day oxycodone 15 mg PO Q8H PRN 30 days HPI HPI PILL COUNT: Details: 77-year-old female who presents today to the office for a pill count. 69 pills were expected, and 69 pills of oxycodone were presented. She wakes up 2-3 times at night. She has been taking oxycodone 0.5 tab and gabapentin at night for sleep. She has not heard back from the Addiction Medicine yet. [facility] Medical History (Updated 08/19/22 @ 09:39 by Victor Manuel Mckeon MD) Insomnia Restless legs syndrome (RLS) Clostridium difficile colitis Opioid dependence Depression Lumbar radiculitis Osteoporosis Atrial tachycardia Anxiety Fatigue Heart palpitations Arthritis Restless leg Surgical History History of creation of ostomy History of partial colectomy Family History Family/Other Alzheimer disease Social History Alcohol intake: never Patient Tobacco Use Status: Former Tobacco user Substance Use Type: Prescription Drugs Review of Systems Const All systems reviewed & are unremarkable except as noted in HPI and below Physical Exam Vital Signs: Last Vital Signs Pulse 79 06/19/23 10:09 Resp 14 06/19/23 10:09 BP 121/68 06/19/23 10:09 Pulse Ox 97 06/19/23 10:09 Oxygen Delivery Method Room Air 06/19/23 10:09 BMI result Body Mass Index 17.7 General: Appears afebrile. Alert and oriented. Mood and affect appropriate. Follows and participates in conversation appropriately. Respiratory effort is unlabored. Able to transition from sit to stand unassisted. Ambulates with bilaterally normal heel strike and toe off. Results Reviewed Results Reviewed: No imaging is available for review. 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 Code(s): F11.20 - Opioid dependence, uncomplicated Category: Medical (3) Pain syndrome, chronic: Code(s): G89.4 - Chronic pain syndrome Category: Medical Plan 69 pills were expected, and 69 pills of oxycodone were presented. Pill count and Mass Pat was consistent. Refill oxycodone 15 mg Q8H PO PRN. Patient will follow up in one month for pill count and refill. She is still waiting for an appointment with addiction medicine to see if she might benefit from suboxone or methadone therapy to help with her withdrawal symptoms as well as pain. Scribed for Dr. Mckeon by Pablo Cohen, medical records auditor, on 06/19/2023. I, Dr. Mckeon, have personally reviewed and agree with the information entered by the scribe. Medications: Refilled oxycodone Partial Fill upon patient request. 15 mg PO Q8H PRN 90 tabs 0RF pain, severe 30 days G89.4 - Chronic pain syndrome, M54.16 - Radiculopathy, lumbar region Coding Level of Care Code Est Pt Level 3 (59837) Diagnoses custodial current use of opiate analgesic Z79.891 Opioid dependence F11.20 Pain syndrome, chronic G89.4
== END 2023-06-19 10:29 | disposition home or self-care (01) ==
PROVIDERS: PCP Internal Medicine; Visit Provider Internal Medicine
DX: G89.4 Chronic pain syndrome (principal); Z79.891 Long term (current) use of opiate analgesic
CPT/HCPCS: 99213

== ENCOUNTER → 2023-06-19 10:03 | Outpatient (BNVA) | payer OTHER, SELFPAY | PROVIDERS: PCP Internal Medicine; Visit Provider Internal Medicine ==

== ENCOUNTER 2023-06-28 10:50 | Outpatient (AMB) | payer OTHER, SELFPAY ==
[2023-06-28 10:48] VITALS: BP 130/82; PULSE 65; O2SAT 98
--- NOTE | 2023-06-28 10:48 | A.OFFVISCC_ITS ---
Vital Signs 06/28/23 10:48 BP 130/82 Blood Pressure Location Rt brachial Position Sitting Pulse 65 Pulse Source Pulse Oximeter Pulse Oximetry (%) 98 Oxygen Delivery Method Room Air Intake Visit Reasons: Intake Allergies codeine [CODEINE] Allergy (Unknown, Verified 06/19/23 10:10) NAUSEA & VOMITING Antihistamines - Alkylamine Adverse Reaction (Severe, Verified 06/19/23 10:10) heart palpitations HPI HPI Intake: Details: Patient presents for an intake Referral from Pain management PCP: Dr. Farooq at [facility] Is stably housed and lives with her adult son. She reports she has been taking various prescribed opiates for 20+ years for chronic pain. She is currently prescribed oxycodone 15 mg TID, and takes them as prescribed Despite taking as prescribed, reports inadequate pain control in addition to mild withdrawal symptoms in the evening (yawning) Has trialed belbuca, butrans, and buprenorphine films unsuccessfully. She states she had a chemical burn from the patch, and has cavaties she was concerned were exacerbated by the films. She has recently trialed dilaudid with pain management clinic, but felt as though the medication made her feel depressed She denies illicit substance use, denies substance use history. She is a cigarette smoker (quit in 1985) Has never gone to detox (denies need) Used to attend [facility] in the for her son Is not currently in therapy, used to be years ago but declines current need [facility] Medical History (Updated 08/19/22 @ 09:39 by Victor Manuel Mckeon MD) Insomnia Restless legs syndrome (RLS) Clostridium difficile colitis Opioid dependence Depression Lumbar radiculitis Osteoporosis Atrial tachycardia Anxiety Fatigue Heart palpitations Arthritis Restless leg Surgical History History of creation of ostomy History of partial colectomy Family History Family/Other Alzheimer disease Social History Alcohol intake: never Patient Tobacco Use Status: Former Tobacco user Substance Use Type: Prescription Drugs Review of Systems Const Reports as per HPI Physical Exam Vital Signs: Last Vital Signs Pulse 65 06/28/23 10:48 BP 130/82 06/28/23 10:48 Pulse Ox 98 06/28/23 10:48 Oxygen Delivery Method Room Air 06/28/23 10:48 Const General: cooperative and no acute distress Nutritional Appearance: thin Resp Effort & Inspection: normal respiratory effort Psych Appearance: grossly normal Mental Status: mental status grossly normal Speech and movement: Normal speech and movement present Affect: normal affect Attitude: cooperative Thought process: Normal thought process present Insight: Good insight present (Psych) Judgement: Good judgement present (Psych) Results AMB 14 Panel Urine Drug Screen Urine Marijuana (THC) Negative Last Edit by Milli Restrepo CMA on 06/28/23 13 :06 Urine Cocaine Negative Last Edit by Milli Restrepo CMA on 06/28/23 13:06 Urine Morphine Negative Last Edit by Milli Restrepo CMA on 06/28/23 13:06 Urine Methamphetamine Negative Last Edit by Milli Restrepo CMA on 06/28/23 13 :06 Urine Amphetamine Negative Last Edit by Milli Restrepo CMA on 06/28/23 13:06 Urine Benzodiazepine Negative Last Edit by Milli Restrepo CMA on 06/28/23 13: 06 Urine Barbiturates Negative Last Edit by Milli Restrepo CMA on 06/28/23 13:06 Urine Methadone Negative Last Edit by Milli Restrepo CMA on 06/28/23 13:06 Urine Buprenorphine Negative Last Edit by Milli Restrepo CMA on 06/28/23 13:0 6 Urine Tricyclic Antidepressant Negative Last Edit by Milli Restrepo CMA on 06/28/23 13:06 Urine MDMA Negative Last Edit by Milli Restrepo CMA on 06/28/23 13:06 Urine Oxycodone Positive Last Edit by Milli Restrepo CMA on 06/28/23 13:06 Urine Phencyclidine Negative Last Edit by Milli Restrepo CMA on 06/28/23 13:0 6 Urine Propoxyphene Negative Last Edit by Milli Restrepo CMA on 06/28/23 13:06 Results Reviewed Results Reviewed: Laboratory Last Values POC Urine Buprenorphine Negative 06/28/23 13:05 POC Urine Morphine Negative 06/28/23 13:05 POC Urine Oxycodone Positive 06/28/23 13:05 POC Urine Methadone Negative 06/28/23 13:05 POC Urine Propoxyphene Negative 06/28/23 13:05 POC Urine Barbiturates Negative 06/28/23 13:05 POC U Tricyclic Antidpr Negative 06/28/23 13:05 POC Urine PCP Negative 06/28/23 13:05 POC Ur Amphetamines Negative 06/28/23 13:05 POC Ur Methamphetamine Negative 06/28/23 13:05 POC Urine MDMA Negative 06/28/23 13:05 POC Ur Benzodiazepine Negative 06/28/23 13:05 POC Urine Cocaine Negative 06/28/23 13:05 POC Ur Marijuana (THC) Negative 06/28/23 13:05 Assessment & Plan Assessment & Plan (1) half-way current use of opiate analgesic: Code(s): 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
== END 2023-06-28 13:05 | disposition home or self-care (01) ==
PROVIDERS: PCP Internal Medicine; Visit Provider Nurse Practitioner Family
DX: Z79.891 Long term (current) use of opiate analgesic (principal)
CPT/HCPCS: 99204

== ENCOUNTER → 2023-06-28 10:50 | Outpatient (BNVA) | payer OTHER, SELFPAY | PROVIDERS: PCP Internal Medicine; Visit Provider Nurse Practitioner Family | DX: G89.29 Other chronic pain (principal); Z79.891 Long term (current) use of opiate analgesic | CPT/HCPCS: 80305 ==

== ENCOUNTER 2023-07-19 13:24 | Outpatient (AMB) | payer OTHER, SELFPAY ==
--- NOTE | 2023-07-19 13:34 | MHC.OFFVIS ---
Vital Signs 07/19/23 13:35 Height 5 ft 3 in Weight 102 lb BMI 18.1 BP 157/70 H Blood Pressure Location Lt brachial Position Sitting Respiration 14 Pulse 67 Pulse Source Pulse Oximeter Pulse Oximetry (%) 97 Oxygen Delivery Method Room Air Intake Visit Reasons: PILL COUNT Intake Note: Pt states she last took oxy 07/19/23 @ 11am Allergies codeine [CODEINE] Allergy (Unknown, Verified 07/19/23 13:36) NAUSEA & VOMITING Antihistamines - Alkylamine Adverse Reaction (Severe, Verified 07/19/23 13:36) heart palpitations Medication List - Last Reconciled 07/19/23 by Melinda Segovia LPN atorvastatin 20 mg PO DAILY calcium carbonate-vitamin D3 600 mg-10 mcg (400 unit) 1 tab PO BID citalopram (Celexa) 20 mg PO DAILY diltiazem HCl ER 120 mg PO DAILY flecainide 100 mg PO BID gabapentin 300 mg PO BEDTIME 30 days naloxone 4 mg/actuation (Narcan) 4 mg intranasal Q2M 1 day oxycodone 15 mg PO Q8H PRN 30 days HPI HPI PILL COUNT: Details: 77-year-old female who presents today to the office for pill count 63 pills were expected, and 60 pills were presented. She met with addiction medicine and they did not deem her suitable for maintenance treatment with methadone. She continues to have significant episodes of withdrawal in between her doses and her pain remains poorly controlled. She also feels that gabapentin is contributing to her cognitive decline and she feels the need to continue taking gabapentin because her symptoms are otherwise not well controlled. She is interested in trialing 4 a day regimen of oxycodone to see if that might help her wean off the gabapentin to get rid of the cognitive symptoms as well as help to prove her pain and withdrawal symptoms. [facility] Medical History (Updated 08/19/22 @ 09:39 by Victor Manuel Mckeon MD) Insomnia Restless legs syndrome (RLS) Clostridium difficile colitis Opioid dependence Depression Lumbar radiculitis Osteoporosis Atrial tachycardia Anxiety Fatigue Heart palpitations Arthritis Restless leg Surgical History History of creation of ostomy History of partial colectomy Family History Family/Other Alzheimer disease Social History Alcohol intake: never Patient Tobacco Use Status: Former Tobacco user Substance Use Type: Prescription Drugs Review of Systems Const All systems reviewed & are unremarkable except as noted in HPI and below Physical Exam Vital Signs: Last Vital Signs Pulse 67 07/19/23 13:35 Resp 14 07/19/23 13:35 BP 157/70 H 07/19/23 13:35 Pulse Ox 97 07/19/23 13:35 Oxygen Delivery Method Room Air 07/19/23 13:35 BMI result Body Mass Index 18.1 General: Appears afebrile. Alert and oriented. Mood and affect appropriate. Follows and participates in conversation appropriately. Respiratory effort is unlabored. Able to transition from sit to stand unassisted. 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 Code(s): F11.20 - Opioid dependence, uncomplicated Category: Medical (3) Chronic left sacroiliac pain: Code(s): M53.3 - Sacrococcygeal disorders, not elsewhere classified; G89.29 - Other chronic pain Category: Medical (4) Lumbar spondylosis: Code(s): M47.816 - Spondylosis without myelopathy or radiculopathy, lumbar region Category: Medical (5) Cervical spondylosis: Code(s): M47.812 - Spondylosis without myelopathy or radiculopathy, cervical region Category: Medical Plan I increased her oxycodone to 15 mg 4 times a day and will see how she does with this increased dose. She will be off of the gabapentin to help with her cognitive symptoms, since she feels that the gabapentin contributes to her cognitive decline and disorientation. I will see her back in 1 month from now, which will be 1 week after starting the new dose of oxycodone and we will see how she does. Scribed for Dr. Mckeon by Florencia Callejas, durable medical equipment repairer, on 07/19/2023. I, Dr. Mckeon, have personally reviewed and agree with the information entered by the scribe. Medications: Refilled oxycodone Partial Fill upon patient request. 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
[2023-07-19 13:35] VITALS: BP 157/70; PULSE 67; RESP 14; O2SAT 97; BMI 18.1
== END 2023-07-19 13:54 | disposition home or self-care (01) ==
PROVIDERS: PCP Internal Medicine; Visit Provider Internal Medicine
DX: G89.29 Other chronic pain (principal); M53.3 Sacrococcygeal disorders, not elsewhere classified; M47.816 Spondylosis without myelopathy or radiculopathy, lumbar region; Z79.891 Long term (current) use of opiate analgesic; M47.812 Spondylosis without myelopathy or radiculopathy, cervical region
CPT/HCPCS: 99214

== ENCOUNTER → 2023-07-19 13:24 | Outpatient (BNVA) | payer OTHER, SELFPAY | PROVIDERS: PCP Internal Medicine; Visit Provider Internal Medicine ==

== ENCOUNTER 2023-08-18 10:14 | Outpatient (AMB) | payer OTHER, SELFPAY ==
[2023-08-18 10:21] VITALS: BP 154/69; PULSE 66; RESP 14; O2SAT 98; BMI 17.7
--- NOTE | 2023-08-18 10:21 | A.OFFVIS_ITS ---
Vital Signs 08/18/23 10:21 Height 5 ft 3 in Weight 100 lb BMI 17.7 BP 154/69 H Blood Pressure Location Lt brachial Position Sitting Respiration 14 Pulse 66 Pulse Source Pulse Oximeter Pulse Oximetry (%) 98 Oxygen Delivery Method Room Air Intake Visit Reasons: PILL COUNT Allergies codeine [CODEINE] Allergy (Unknown, Verified 08/18/23 10:25) NAUSEA & VOMITING Antihistamines - Alkylamine Adverse Reaction (Severe, Verified 08/18/23 10:25) heart palpitations Medication List - Last Reconciled 08/18/23 by Melinda Segovia LPN atorvastatin 20 mg PO DAILY calcium carbonate-vitamin D3 600 mg-10 mcg (400 unit) 1 tab PO BID citalopram (Celexa) 20 mg PO DAILY diltiazem HCl ER 120 mg PO DAILY flecainide 100 mg PO BID gabapentin 300 mg PO BEDTIME 30 days naloxone 4 mg/actuation (Narcan) 4 mg intranasal Q2M 1 day oxycodone 15 mg PO Q8H PRN 30 days HPI HPI PILL COUNT: Details: 77-year-old female who presents today to the office for a pill count. 88 pills were expected, and 88 pills were presented. Her chronic pain symptoms have significantly improved since the dosage increased to 15 mg 4 times a day. She reports new pain in her left index finger from the recent history of infection and I and D, and suspects that it is from scar tissue. She describes her pain as pins and needles. She has throbbing sensations in her hands and fingers when pressure is applied. She reports swelling in her hands after waking up in the morning. She has been following up with OT. She will follow up with her surgeon on September 29, 2023. [facility] Medical History (Updated 08/19/22 @ 09:39 by Victor Manuel Mckeon MD) Insomnia Restless legs syndrome (RLS) Clostridium difficile colitis Opioid dependence Depression Lumbar radiculitis Osteoporosis Atrial tachycardia Anxiety Fatigue Heart palpitations Arthritis Restless leg Surgical History History of creation of ostomy History of partial colectomy Family History Family/Other Alzheimer disease Social History Alcohol intake: never Patient Tobacco Use Status: Former Tobacco user Substance Use Type: Prescription Drugs Review of Systems Const All systems reviewed & are unremarkable except as noted in HPI and below Physical Exam Vital Signs: Last Vital Signs Pulse 66 08/18/23 10:21 Resp 14 08/18/23 10:21 BP 154/69 H 08/18/23 10:21 Pulse Ox 98 08/18/23 10:21 Oxygen Delivery Method Room Air 08/18/23 10:21 BMI result Body Mass Index 17.7 General: Appears afebrile. Alert and oriented. Mood and affect appropriate. Follows and participates in conversation appropriately. Respiratory effort is unlabored. Able to transition from sit to stand unassisted. Ambulates with bilaterally normal heel strike and toe off. Limited extension of the left index finger. The finger looks red and swollen. There is some hypersensitivity. Results Reviewed Results Reviewed: No imaging is available for review. Assessment & Plan Assessment & Plan (1) detention current use of opiate analgesic: Code(s): Z79.891 - detention (current) use of opiate analgesic Category: Medical (2) Pain syndrome, chronic: Code(s): G89.4 - Chronic pain syndrome Category: Medical Plan 88 pills were expected, and 88 pills of oxycodone were presented. Pill count and Mass Pat was consistent. Refill oxycodone 15 mg Q8H PO PRN. Patient will follow up in one month for pill count and refill. It looks like she is starting to develop some left hand CRPS following her left index finger injury. She will continue with OT and home exercises to prevent progression as much as possible. I recommended desensitizing?exercises for CRPS including to rubbing, massaging, and exercising the fingers. Follow-up with hand surgeon as scheduled. Scribed for Dr. Mckeon by Pablo Cohen, manager medical writing, on 08/18/2023. I, Dr. Mckeon, have personally reviewed and agree with the information entered by the scribe. Medications: Refilled oxycodone Partial Fill upon patient request. 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
== END 2023-08-18 10:32 | disposition home or self-care (01) ==
PROVIDERS: PCP Internal Medicine; Visit Provider Internal Medicine
DX: G89.4 Chronic pain syndrome (principal); Z79.891 Long term (current) use of opiate analgesic
CPT/HCPCS: 99214

== ENCOUNTER → 2023-08-18 10:14 | Outpatient (BNVA) | payer OTHER, SELFPAY | PROVIDERS: PCP Internal Medicine; Visit Provider Internal Medicine ==

== ENCOUNTER → 2023-09-13 09:11 | Outpatient (BNVA) | payer OTHER, SELFPAY | PROVIDERS: PCP Internal Medicine; Visit Provider Internal Medicine ==

== ENCOUNTER 2023-10-11 08:47 | Outpatient (AMB) | payer OTHER, SELFPAY ==
--- NOTE | 2023-10-11 08:56 | MHC.OFFVIS ---
Vital Signs 10/11/23 08:57 Height 5 ft 2 in Weight 101 lb BMI 18.5 BP 147/73 H Blood Pressure Location Lt brachial Position Sitting Respiration 14 Pulse 71 Pulse Source Pulse Oximeter Pulse Oximetry (%) 96 Oxygen Delivery Method Room Air Intake Visit Reasons: Pill Count/ random UDS Intake Note: Pt states she last took oxy 10/11/23 @ 5am Allergies codeine [CODEINE] Allergy (Unknown, Verified 10/11/23 08:57) NAUSEA & VOMITING Antihistamines - Alkylamine Adverse Reaction (Severe, Verified 10/11/23 08:57) heart palpitations Medication List - Last Reconciled 10/11/23 by Melinda Segovia LPN atorvastatin 20 mg PO DAILY calcium carbonate-vitamin D3 600 mg-10 mcg (400 unit) 1 tab PO BID citalopram (Celexa) 20 mg PO DAILY diltiazem HCl ER 120 mg PO DAILY flecainide 100 mg PO BID gabapentin 300 mg PO BEDTIME 30 days naloxone 4 mg/actuation (Narcan) 4 mg intranasal Q2M 1 day oxycodone 15 mg PO QID PRN 30 days HPI HPI Pill Count/ random UDS: Details: 77-year-old female who presents today for a pill count. 8 pills were expected, and 10 pills were presented. Patient continues to have pain, senstivity and numbness in the left ring finger area. The symptoms bother her the most with activity. She saw the surgeon last week who said no further surgery is indicated. Patient has a history of restless legs and is already taking gabapentin 300 mg for restless legs. [facility] Medical History (Updated 08/19/22 @ 09:39 by Victor Manuel Mckeon MD) Insomnia Restless legs syndrome (RLS) Clostridium difficile colitis Opioid dependence Depression Lumbar radiculitis Osteoporosis Atrial tachycardia Anxiety Fatigue Heart palpitations Arthritis Restless leg Surgical History History of creation of ostomy History of partial colectomy Family History Family/Other Alzheimer disease Social History Alcohol intake: never Patient Tobacco Use Status: Former Tobacco user Substance Use Type: Prescription Drugs Physical Exam Vital Signs: Last Vital Signs Pulse 71 10/11/23 08:57 Resp 14 10/11/23 08:57 BP 147/73 H 10/11/23 08:57 Pulse Ox 96 10/11/23 08:57 Oxygen Delivery Method Room Air 10/11/23 08:57 BMI result Body Mass Index 18.5 General: Appears afebrile. Alert and oriented. Mood and affect appropriate. Follows and participates in conversation appropriately. Respiratory effort is unlabored. Able to transition from sit to stand unassisted. Ambulates with bilaterally normal heel strike and toe off. 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 Code(s): F11.20 - Opioid dependence, uncomplicated Category: Medical (4) Lumbar spondylosis: Code(s): M47.816 - Spondylosis without myelopathy or radiculopathy, lumbar region Category: Medical Plan 8 pills were expected, and 10 pills of oxycodone were presented. Pill count and Mass Pat was consistent. Explained the etiology of the present state of her RSD symptoms in the ring finger, which appears to be improving. Recommended continuing OT exercises at home. Refilled her 30-day prescription of oxycodone 15 mg PO QID. Added a prescription of gabapentin 100 mg capsule to be taken during the day for finger symptoms; she can continue the 300 mg capsule at night. Follow up in [address] Mckeon by Wendy medical economics consultant, on 10/11/2023. I, Dr. Mckeon, have personally reviewed and agree with the information entered by the scribe. Medications: New gabapentin 100 mg PO DAILY 60 caps 2RF Refilled oxycodone Partial Fill upon patient request. 15 mg PO QID PRN 120 tabs 0RF pain, severe 30 days G89.4 - Chronic pain syndrome, M54.16 - Radiculopathy, lumbar region Coding Level of Care Code Est Pt Level 4 (59963) Diagnoses nursing home current use of opiate analgesic Z79.891 Restless legs syndrome (RLS) G25.81 Opioid dependence F11.20 Lumbar spondylosis M47.816
[2023-10-11 08:57] VITALS: BP 147/73; PULSE 71; RESP 14; O2SAT 96; BMI 18.5
== END 2023-10-11 09:11 | disposition home or self-care (01) ==
PROVIDERS: PCP Internal Medicine; Visit Provider Internal Medicine
DX: G25.81 Restless legs syndrome (principal); M47.816 Spondylosis without myelopathy or radiculopathy, lumbar region; Z79.891 Long term (current) use of opiate analgesic
CPT/HCPCS: 99214

== ENCOUNTER → 2023-10-11 08:47 | Outpatient (BNVA) | payer OTHER, SELFPAY | PROVIDERS: PCP Internal Medicine; Visit Provider Internal Medicine ==

== ENCOUNTER 2023-11-08 09:28 | Outpatient (AMB) | payer OTHER, SELFPAY ==
--- NOTE | 2023-11-08 09:37 | A.OFFVIS_ITS ---
Vital Signs 11/08/23 09:38 Height 5 ft 2 in Weight 100 lb BMI 18.3 BP 139/83 Blood Pressure Location Lt brachial Position Sitting Respiration 15 Pulse 77 Pulse Source Pulse Oximeter Pulse Oximetry (%) 99 Oxygen Delivery Method Room Air Intake Visit Reasons: PILL COUNT Intake Note: Pt states she last took oxy 11/08/23 @ 4:30am Allergies codeine [CODEINE] Allergy (Unknown, Verified 12/06/23 09:47) NAUSEA & VOMITING Antihistamines - Alkylamine Adverse Reaction (Severe, Verified 12/06/23 09:47) heart palpitations Medication List - Last Reconciled 11/08/23 by Melinda Segovia LPN atorvastatin 20 mg PO DAILY calcium carbonate-vitamin D3 600 mg-10 mcg (400 unit) 1 tab PO BID citalopram (Celexa) 20 mg PO DAILY diltiazem HCl ER 120 mg PO DAILY flecainide 100 mg PO BID gabapentin 300 mg PO BEDTIME 30 days gabapentin 100 mg PO DAILY naloxone 4 mg/actuation (Narcan) 4 mg intranasal Q2M 1 day oxycodone 15 mg PO QID PRN 30 days HPI HPI PILL COUNT: Details: 77-year-old female who presents today for a pill count. 16 pills were expected, and 17 pills were presented. No other changes in her health since then. Patient claims that she used to drink alcohol a lot when she was young; however, denies currently. She mentions that she is drinking some kind of ?energy drink.? She also reports eating shrimp cooked in wine. UDS was positive for ethyl alcohol. She is taking gabapentin at night for restless legs. She denies taking buprenorphine currently [facility] Medical History (Updated 08/19/22 @ 09:39 by Victor Manuel Mckeon MD) Insomnia Restless legs syndrome (RLS) Clostridium difficile colitis Opioid dependence Depression Lumbar radiculitis Osteoporosis Atrial tachycardia Anxiety Fatigue Heart palpitations Arthritis Restless leg Surgical History History of creation of ostomy History of partial colectomy Family History Family/Other Alzheimer disease Social History Alcohol intake: never Patient Tobacco Use Status: Former Tobacco user Substance Use Type: Prescription Drugs Physical Exam Vital Signs: Last Vital Signs Pulse 77 11/08/23 09:38 Resp 15 11/08/23 09:38 BP 139/83 11/08/23 09:38 Pulse Ox 99 11/08/23 09:38 Oxygen Delivery Method Room Air 11/08/23 09:38 BMI result Body Mass Index 18.3 General: Appears afebrile. Alert and oriented. Mood and affect appropriate. Follows and participates in conversation appropriately. Respiratory effort is unlabored. Able to transition from sit to stand unassisted. Ambulates with bilaterally normal heel strike and toe off. 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 Pill count and Mass Pat was consistent. I refilled her medication oxycodone 15 milligrams four times a day starting 11/11. I also counseled her regarding alcohol consumption. She denied alcohol consumpt ion and states that she has not had a drink in the past 30 years. She is taking supplements with different liquid formulations including boost and another supplement that she did not recall the name of. It is unclear where the source of her alcohol is in the absence of alcohol intake. I did middle school guidance counselor her that this does place her in a high risk category and that we would be less likely to be lenient in case of any count discrepancies in the future in light of these UDS results. Patient expressed understanding. Scribed for Dr. Mckeon by Wendy product manager medical device, on 11/08/2023. I, Dr. Mckeon, have personally reviewed and agree with the information entered by the scribe. Medications: Refilled oxycodone Partial Fill upon patient request. 15 mg PO QID PRN 120 tabs 0RF pain, severe 30 days M54.16 - Radiculopathy, lumbar region, G89.4 - Chronic pain syndrome Coding Level of Care Code Est Pt Level 4 (31237) Diagnoses care home current use of opiate analgesic Z79.891 Restless legs syndrome (RLS) G25.81 Pain syndrome, chronic G89.4
[2023-11-08 09:38] VITALS: BP 139/83; PULSE 77; RESP 15; O2SAT 99; BMI 18.3
== END 2023-11-08 09:58 | disposition home or self-care (01) ==
PROVIDERS: PCP Internal Medicine; Visit Provider Internal Medicine
DX: Z79.891 Long term (current) use of opiate analgesic (principal); G25.81 Restless legs syndrome; G89.4 Chronic pain syndrome
CPT/HCPCS: 99214

== ENCOUNTER → 2023-11-08 09:28 | Outpatient (BNVA) | payer OTHER, SELFPAY | PROVIDERS: PCP Internal Medicine; Visit Provider Internal Medicine ==

== ENCOUNTER → 2023-12-06 09:19 | Outpatient (BNVA) | payer OTHER, SELFPAY | PROVIDERS: PCP Internal Medicine; Visit Provider Internal Medicine ==

== ENCOUNTER 2024-01-03 09:30 | Outpatient (AMB) | payer OTHER, SELFPAY ==
[2024-01-03 09:37] VITALS: BP 184/74; PULSE 70; O2SAT 98; BMI 18.3
--- NOTE | 2024-01-03 09:37 | MHC.OFFVIS ---
Vital Signs 01/03/24 09:37 Height 5 ft 2 in Weight 100 lb BMI 18.3 BP 184/74 H Blood Pressure Location Rt brachial Position Sitting Pulse 70 Pulse Source Pulse Oximeter Pulse Oximetry (%) 98 Oxygen Delivery Method Room Air Intake Visit Reasons: PILL COUNT Allergies codeine [CODEINE] Allergy (Unknown, Verified 01/03/24 09:38) NAUSEA & VOMITING Antihistamines - Alkylamine Adverse Reaction (Severe, Verified 01/03/24 09:38) heart palpitations Medication List - Last Reconciled 01/03/24 by Nereida Dalton alendronate 70 mg PO QWEEK atorvastatin 20 mg PO DAILY calcium carbonate-vitamin D3 600 mg-10 mcg (400 unit) 1 tab PO BID citalopram 40 mg PO DAILY diltiazem HCl ER 120 mg PO DAILY flecainide 100 mg PO BID fluticasone propionate 50 mcg/actuation intranasal gabapentin 300 mg PO BEDTIME 30 days gabapentin 100 mg PO DAILY magnesium oxide 400 mg PO DAILY naloxone 4 mg/actuation (Narcan) 4 mg intranasal Q2M 1 day oxycodone 15 mg PO QID PRN 30 days HPI Comments Details: Kacey presents to the office for follow up chronic pain and chronic opioid therapy management. Patient is prescribed oxycodone 15mg, take 1 tablet four times daily. She arrived today with the expectation of having 32 pills, she presented 31 pills which were counted in the presence of two staff members and returned to the patient in the original prescription bottle. This demonstrates responsible attitude toward patient's opioid medications. Pain is reported today as 5/10 and last dose of pain medication was taken at 05:00 this morning. Denies side effects including somnolence, constipation, itching, dyspnea, rash, dizziness or weakness. Taking Gabapentin at bedtime for restless legs, states no refill needed today. Tolerating the medication well though states she does notice some brain fog so only taking it at bedtime. Prior visit with Dr Mckeon: 77-year-old female who presents today for a pill count. 16 pills were expected, and 17 pills were presented. No other changes in her health since then. Patient claims that she used to drink alcohol a lot when she was young; however, denies currently. She mentions that she is drinking some kind of ?energy drink.? She also reports eating shrimp cooked in wine. UDS was positive for ethyl alcohol. She is taking gabapentin at night for restless legs. She denies taking buprenorphine currently [facility] Medical History (Updated 08/19/22 @ 09:39 by Victor Manuel Mckeon MD) Insomnia Restless legs syndrome (RLS) Clostridium difficile colitis Opioid dependence Depression Lumbar radiculitis Osteoporosis Atrial tachycardia Anxiety Fatigue Heart palpitations Arthritis Restless leg Surgical History History of creation of ostomy History of partial colectomy Family History Family/Other Alzheimer disease Social History Alcohol intake: never Patient Tobacco Use Status: Former Tobacco user Substance Use Type: Prescription Drugs Review of Systems Const All systems reviewed & are unremarkable except as noted in HPI and below Physical Exam Vital Signs: Last Vital Signs Pulse 70 01/03/24 09:37 BP 184/74 H 01/03/24 09:37 Pulse Ox 98 01/03/24 09:37 Oxygen Delivery Method Room Air 01/03/24 09:37 BMI result Body Mass Index 18.3 General: awake, alert, oriented. Answers questions appropriately. Fully engaged in examination. Skin: warm, dry, intact HEENT: Normocephalic. Hearing intact. Cardiac: External chest normal in appearance. Respiratory: No cough, audible wheezing or stridor. Abdomen: without gross distension. MS: No obvious swelling or deformities. Able to transition from sit to stand unassisted. Ambulates with bilaterally normal heel strike and toe off Neurological: Oriented to person, place, time and situation. Thought process intact. No gait abnormalities appreciated. Psychiatric: Appropriate mood and affect. Good judgment and insight. 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 No obvious signs of diversion, abuse or misuse of the opioid medications. Will send in prescription for Oxycodone 15mg po QID with an advanced date of 01/11/24. C/W Gabapentin as prescribed, she declines needs for refill today. Patient to follow-up in the office in 1 month, sooner if needed. All questions and concerns have been answered and patient agrees with the plan. Medications: Refilled oxycodone Partial Fill upon patient request. 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
== END 2024-01-03 09:51 | disposition home or self-care (01) ==
PROVIDERS: PCP Internal Medicine; Visit Provider Registered Nurse Emergency
DX: Z79.891 Long term (current) use of opiate analgesic (principal); G25.81 Restless legs syndrome; G89.4 Chronic pain syndrome
CPT/HCPCS: 99214

== ENCOUNTER → 2024-01-03 09:30 | Outpatient (BNVA) | payer OTHER, SELFPAY | PROVIDERS: PCP Internal Medicine; Visit Provider Registered Nurse Emergency ==

== ENCOUNTER 2024-01-31 09:29 | Outpatient (AMB) | payer OTHER, SELFPAY ==
--- NOTE | 2024-01-31 09:32 | MHC.OFFVIS ---
Vital Signs 01/31/24 09:39 Height 5 ft 2 in Weight 100 lb 2 oz BMI 18.3 BP 118/57 L Blood Pressure Location Rt brachial Position Sitting Pulse 81 Pulse Source Pulse Oximeter Pulse Oximetry (%) 97 Oxygen Delivery Method Room Air Intake Visit Reasons: PILL COUNT Intake Note: Kacey comes in today for a pill count to oxycodone, patient should have 40 tablets which she last took today 01/31/24 at 5am. 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 Patient is prescribed oxycodone 15mg, take 1 tablet four times daily. She arrived today with the expectation of having 40 pills, she presented 40 pills which were counted in the presence of two staff members and returned to the patient in the original prescription bottle. This demonstrates responsible attitude toward patient's opioid medications. Last dose of pain medication was taken at 05:00 this morning. Denies side effects including somnolence, constipation, itching, dyspnea, rash, dizziness or weakness. Taking Gabapentin at bedtime for restless legs. [facility] Medical History (Updated 08/19/22 @ 09:39 by Victor Manuel Mckeon MD) Insomnia Restless legs syndrome (RLS) Clostridium difficile colitis Opioid dependence Depression Lumbar radiculitis Osteoporosis Atrial tachycardia Anxiety Fatigue Heart palpitations Arthritis Restless leg Surgical History History of creation of ostomy History of partial colectomy Family History Family/Other Alzheimer disease Social History Alcohol intake: never Patient Tobacco Use Status: Former Tobacco user Substance Use Type: Prescription Drugs Review of Systems Const All systems reviewed & are unremarkable except as noted in HPI and below Physical Exam Vital Signs: Last Vital Signs Pulse 81 01/31/24 09:39 BP 118/57 L 01/31/24 09:39 Pulse Ox 97 01/31/24 09:39 Oxygen Delivery Method Room Air 01/31/24 09:39 BMI result Body Mass Index 18.3 General: awake, alert, oriented. Answers questions appropriately. Fully engaged in examination. Skin: warm, dry, intact HEENT: Normocephalic. Hearing intact. Cardiac: External chest normal in appearance. Respiratory: No cough, audible wheezing or stridor. Abdomen: without gross distension. MS: No obvious swelling or deformities. Able to transition from sit to stand unassisted. Ambulates with bilaterally normal heel strike and toe off Neurological: Oriented to person, place, time and situation. Thought process intact. No gait abnormalities appreciated. Psychiatric: Appropriate mood and affect. Good judgment and insight. 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 No obvious signs of diversion, abuse or misuse of the opioid medications. Will send in prescription for Oxycodone 15mg po QID with an advanced date of 02/10/24. C/W Gabapentin as prescribed All questions and concerns have been answered and patient agrees with the plan. Follow-up in the office in 1 month, sooner if needed. Medications: Refilled oxycodone Partial Fill upon patient request. 15 mg PO QID PRN 120 tabs 0RF pain, severe 30 days G89.4 - Chronic pain syndrome, M54.16 - Radiculopathy, lumbar region Coding Level of Care Code Est Pt Level 4 (32440) Complex EM visit Add On G2211 Diagnoses [facility] current use of opiate analgesic Z79.891 Restless legs syndrome (RLS) G25.81 Pain syndrome, chronic G89.4
[2024-01-31 09:39] VITALS: BP 118/57; PULSE 81; O2SAT 97; BMI 18.3
== END 2024-01-31 09:51 | disposition home or self-care (01) ==
PROVIDERS: PCP Internal Medicine; Visit Provider Registered Nurse Emergency
DX: Z79.891 Long term (current) use of opiate analgesic (principal); G25.81 Restless legs syndrome; G89.4 Chronic pain syndrome
CPT/HCPCS: 99214

== ENCOUNTER → 2024-01-31 09:29 | Outpatient (BNVA) | payer OTHER, SELFPAY | PROVIDERS: PCP Internal Medicine; Visit Provider Registered Nurse Emergency ==

== ENCOUNTER 2024-02-28 09:44 | Outpatient (AMB) | payer OTHER, SELFPAY ==
--- NOTE | 2024-02-28 09:49 | MHC.OFFVIS ---
Vital Signs 02/28/24 09:50 Height 5 ft 2 in Weight 100 lb BMI 18.3 BP 123/67 Blood Pressure Location Rt brachial Position Sitting Respiration 16 Pulse 84 Pulse Source Pulse Oximeter Pulse Oximetry (%) 100 Oxygen Delivery Method Room Air Intake Visit Reasons: PILL COUNT/ random UDS Intake Note: Pt states she last took oxy 02/28/24 @ 5am Allergies codeine [CODEINE] Allergy (Unknown, Verified 02/28/24 09:52) NAUSEA & VOMITING Antihistamines - Alkylamine Adverse Reaction (Severe, Verified 02/28/24 09:52) heart palpitations Medication List - Last Reconciled 02/28/24 by Melinda Segovia LPN alendronate 70 mg PO QWEEK atorvastatin 20 mg PO DAILY calcium carbonate-vitamin D3 600 mg-10 mcg (400 unit) 1 tab PO BID citalopram 40 mg PO DAILY diltiazem HCl ER 120 mg PO DAILY flecainide 100 mg PO BID fluticasone propionate 50 mcg/actuation intranasal gabapentin 300 mg PO BEDTIME 30 days magnesium oxide 400 mg PO DAILY naloxone 4 mg/actuation (Narcan) 4 mg intranasal Q2M 1 day oxycodone 15 mg PO QID PRN 30 days HPI Comments Details: Kacey presents to the office for follow up chronic pain and chronic opioid therapy management. Patient is prescribed oxycodone 15mg, take 1 tablet four times daily. She arrived today with the expectation of having 48 pills, she presented 49 pills which were counted in the presence of two staff members and returned to the patient in the original prescription bottle. This demonstrates responsible attitude toward patient's opioid medications. Last dose of pain medication was taken at 05:00 this morning. Denies side effects including somnolence, constipation, itching, dyspnea, rash, dizziness or weakness. [facility] Medical History (Updated 08/19/22 @ 09:39 by Victor Manuel Mckeon MD) Insomnia Restless legs syndrome (RLS) Clostridium difficile colitis Opioid dependence Depression Lumbar radiculitis Osteoporosis Atrial tachycardia Anxiety Fatigue Heart palpitations Arthritis Restless leg Surgical History History of creation of ostomy History of partial colectomy Family History Family/Other Alzheimer disease Social History Alcohol intake: never Patient Tobacco Use Status: Former Tobacco user Substance Use Type: Prescription Drugs Review of Systems Const All systems reviewed & are unremarkable except as noted in HPI and below Physical Exam Vital Signs: Last Vital Signs Pulse 84 02/28/24 09:50 Resp 16 02/28/24 09:50 BP 123/67 02/28/24 09:50 Pulse Ox 100 02/28/24 09:50 Oxygen Delivery Method Room Air 02/28/24 09:50 BMI result Body Mass Index 18.3 General: awake, alert, oriented. Answers questions appropriately. Fully engaged in examination. Skin: warm, dry, intact HEENT: Normocephalic. Hearing intact. Cardiac: External chest normal in appearance. Respiratory: No cough, audible wheezing or stridor. Abdomen: without gross distension. MS: No obvious swelling or deformities. Able to transition from sit to stand unassisted. Neurological: Oriented to person, place, time and situation. Thought process intact. No gait abnormalities appreciated. Psychiatric: Appropriate mood and affect. Good judgment and insight. 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 No obvious signs of diversion, abuse or misuse of the opioid medications. Will send in prescription for Oxycodone 15mg po QID with an advanced date of 03/11/23. C/W Gabapentin as prescribed All questions and concerns have been answered and patient agrees with the plan. Follow-up in the office in 1 month, sooner if needed. Medications: Refilled oxycodone Partial Fill upon patient request. 15 mg PO QID PRN 120 tabs 0RF pain, severe 30 days G89.4 - Chronic pain syndrome, M54.16 - Radiculopathy, lumbar region Coding Level of Care Code Est Pt Level 4 (31541) Complex EM visit Add On G2211 Diagnoses [facility] current use of opiate analgesic Z79.891 Restless legs syndrome (RLS) G25.81 Pain syndrome, chronic G89.4
[2024-02-28 09:50] VITALS: BP 123/67; PULSE 84; RESP 16; O2SAT 100; BMI 18.3
== END 2024-02-28 10:05 | disposition home or self-care (01) ==
PROVIDERS: PCP Internal Medicine; Visit Provider Registered Nurse Emergency
DX: Z79.891 Long term (current) use of opiate analgesic (principal); G25.81 Restless legs syndrome; G89.4 Chronic pain syndrome
CPT/HCPCS: 99214

== ENCOUNTER 2024-03-27 09:28 | Outpatient (AMB) | payer OTHER, SELFPAY ==
[2024-03-27 09:56] VITALS: BP 108/59; PULSE 71; RESP 16; O2SAT 99; BMI 18.3
--- NOTE | 2024-03-27 09:56 | MHC.OFFVIS ---
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 Allergies codeine [CODEINE] Allergy (Unknown, Verified 03/27/24 10:00) NAUSEA & VOMITING Antihistamines - Alkylamine Adverse Reaction (Severe, Verified 03/27/24 10:00) heart palpitations Medication List - Last Reconciled 03/27/24 by Melinda Segovia LPN alendronate 70 mg PO QWEEK atorvastatin 20 mg PO DAILY calcium carbonate-vitamin D3 600 mg-10 mcg (400 unit) 1 tab PO BID citalopram 40 mg PO DAILY diltiazem HCl ER 120 mg PO DAILY flecainide 100 mg PO BID fluticasone propionate 50 mcg/actuation intranasal gabapentin 300 mg PO BEDTIME 30 days magnesium oxide 400 mg PO DAILY naloxone 4 mg/actuation (Narcan) 4 mg intranasal Q2M 1 day oxycodone 15 mg PO QID PRN 30 days HPI HPI PILL COUNT: Details: History of Present Illness The patient is a 78-year-old female presenting with chronic pain and limited function in the hand. The condition appears to be due to both tendon involvement and presumed nerve damage, possibly from a previous injury or surgical procedure. The patient notes numbness and the inability to fully stretch the hand. This has been an ongoing issue, complicating her daily activities. In terms of health changes, the patient also reports feeling under the weather, which worsens in the winter months, but no other acute medical changes. She has been managing her medications diligently, with a perfect pill count indicating consistency in medication compliance. Pain Description - Onset and Timing: Chronic, not specified exactly when it began - Quality and Character: Numbness and limited mobility in the hand - Primary Location: Hand - Exacerbating Factors: Winter weather exacerbates general health; specific factors for hand pain not explicitly mentioned - Relieving Factors: Not explicitly discussed Physical Exam Appears afebrile. Alert and oriented. Mood and affect appropriate. Follows and participates in conversation appropriately. Respiratory effort is unlabored. Able to transition from sit to stand unassisted. Ambulates with bilaterally normal heel strike and toe off. Able to stand and walk on toes and heels. Pain Management - Affect: Patient describes feeling under the weather, particularly influenced by winter weather. - Analgesia: Pain management regimen includes medications that are being correctly adhered to, as confirmed by the pill count. - Adverse Effects: None reported - Activities of Daily Living: Limited hand mobility affects daily tasks; patient expresses desire for independence in home care. - Aberrant Drug Related Behaviors: No signs of misuse or abuse of prescribed medications. [facility] Medical History (Updated 08/19/22 @ 09:39 by Victor Manuel Mckeon MD) Insomnia Restless legs syndrome (RLS) Clostridium difficile colitis Opioid dependence Depression Lumbar radiculitis Osteoporosis Atrial tachycardia Anxiety Fatigue Heart palpitations Arthritis Restless leg Surgical History History of creation of ostomy History of partial colectomy Family History Family/Other Alzheimer disease Social History Alcohol intake: never Patient Tobacco Use Status: Former Tobacco user Substance Use Type: Prescription Drugs Physical Exam Vital Signs: Last Vital Signs Pulse 71 03/27/24 09:56 Resp 16 03/27/24 09:56 BP 108/59 L 03/27/24 09:56 Pulse Ox 99 03/27/24 09:56 Oxygen Delivery Method Room Air 03/27/24 09:56 BMI result Body Mass Index 18.3 Assessment & Plan Assessment & Plan (1) snf current use of opiate analgesic: Code(s): Z79.891 - snf (current) use of opiate analgesic Category: Medical (2) Pain syndrome, chronic: Code(s): G89.4 - Chronic pain syndrome Category: Medical Plan Plan - Continue current pain management regimen, with attention to hand mobility limitations. - Encourage strategies to manage seasonal affective symptoms related to winter weather, although specific strategies are not detailed in the conversation. - Pill count consistent; medication refilled per schedule Patient was informed and verbally consented to the use of an ambient scribe for clinic note documentation during this visit. Discussion Notes During the visit, I discussed the patient's chronic hand pain and the importance of adhering to her medication regimen, which she has been doing perfectly. We acknowledged the challenges posed by winter weather on her overall well-being and agreed to continue managing her condition conservatively. Follow-up is scheduled for one month to reassess and refill her medication. The importance of avoiding falls and remaining vigilant was emphasized, drawing on an anecdote of another patient who faced severe consequences from a minor incident. Patient Instructions - Continue taking medications as prescribed. - Maintain activity levels to the extent possible, while keeping the home environment safe to prevent falls. - Return to the clinic in one month for medication refill and follow-up assessment. - Report any significant changes in pain or health status before the next scheduled appointment. Medications: Refilled oxycodone Partial Fill upon patient request. 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
--- OUTSIDE RECORDS SUMMARY | 2024-03-27 09:56 | XMS_ITS | Clinical Summary ---
Author Organization [facility] Address [address] [place] [phone] Phone Care Team Providers Care Etl Analyst Developer Name Role Phone Alex Blackwell MD Primary Care Provider Allergies Active Allergy Reactions Criticality Noted Date Comments Codeine Nausea And Vomiting 01/08/2024 Medications Medication Sig Dispensed Refills Start Date End Date Status alendronate (FOSAMAX) 70 mg tablet Take 1 Tablet by mouth every 7 days. 11/03/2022 Active calcium carbonate-vitamin D (Calcium with Vitamin D) 600 mg-10 mcg (400 unit) per tablet Take 1 Tablet by mouth 2 times daily. 08/12/2022 Active dilTIAZem XR (DILACOR XR) 120 mg 24 hr capsule 1 capsule (120 mg total) 1 (one) time each day. 12/01/2022 Active flecainide (TAMBOCOR) 100 mg tablet TAKE 1 TABLET TWICE A DAY 07/26/2023 Active gabapentin (NEURONTIN) 300 mg capsule TAKE 1 CAPSULE BY MOUTH AT 10PM AND 1 CAPSULE BY MOUTH AT 1130PM NEEDED FOR PAIN 05/03/2023 Active oxyCODONE (ROXICODONE) 15 mg immediate release tablet Take 1 tablet (15 mg total) by mouth 4 (four) times a day if needed. 10/02/2020 Active lactose-reduced food (BOOST ORAL) Take 1 Can by mouth 2 times daily. MARCOS- 6 months 1 can twice a day 60 cans per month with 5 refills 11/03/2022 Active dilTIAZem (CARDIZEM) 30 mg immediate release tablet Take 1 Tablet by mouth as needed (prn prolonged palpitations can take every 6 hours) for up to 360 days. Active venlafaxine XR (EFFEXOR-XR) 37.5 mg 24 hr capsule Take 1 capsule (37.5 mg total) by mouth 1 (one) time each day. Do not crush or chew. 90 each 1 12/28/2023 Active lisinopriL (PRINIVIL,ZESTRIL) 10 mg tablet Take 1 tablet (10 mg total) by mouth 1 (one) time each day. 30 each 2 12/28/2023 Active magnesium oxide (MAG-OX) 400 mg (241.3 elemental magnesium) tablet Take 1 tablet (400 mg total) by mouth 2 (two) times a day. 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 Recommend pelvic ultrasound, which was ordered today. Discussed recommendation for endometrial sampling, as well, particulary if the endometrial stripe measures >4mm on ultrasound. She will schedule to return for EMB after completing US. Encouraged her to take Motrin prior to the procedure. She has chronic kidney disease and was told not to take NSAIDS. She was encouraged to ask program management professional if one time pre-procedure dose would be OK. She is on Oxycodone chronically. We also discussed option for placement of paracervical block for pain control. All questions answered. 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 Izquierdo Mixed hyperlipidemia 11/07/2014 Actinic keratoses 07/17/2013 Overview (11/21/2023): Actinic keratoses Osteoporosis 05/26/2012 Overview (11/21/2023): DXA 03/13/19 Left hip- -2.5 Lumbar spine- -1.3 Radiculitis, lumbosacral 03/12/2011 Overview (11/21/2023): Follow up with [facility]. Receiving oxycodone and Belbuca patches from specialist office for pain control. Lumbar radiculitis 01/04/2007 Anxiety and depression 05/16/2005 Encounters Date Type Department Care Team Description 01/26/2024 12:30 PM EST - 01/26/2024 1:45 PM EST Surgery [facility] OR [address] [place] [phone] Shantell Gambino MD HYSTEROSCOPY D&C [20196 (CPT??)] 01/26/2024 12:09 PM EST Anesthesia Event [address] [phone] Jose Frausto MD Moccia, Lauren, SRNA 01/26/2024 11:13 AM EST - 01/26/2024 2:24 PM EST Hospital Encounter [facility] Main OR [address] [place] [phone] Shantell Gambino MD Postmenopausal bleeding Discharge Disposition: Home or Self Care 01/22/2024 10:30 AM EST Consult [address] [phone] Alex Blackwell MD Preop examination (Primary Dx); Primary hypertension; PSVT (paroxysmal supraventricular tachycardia) (CMS/HCC); Hypomagnesemia; CKD (chronic kidney disease) stage 2, GFR 60-89 ml/min; Restless leg syndrome; Osteoporosis without current pathological fracture, unspecified osteoporosis type; Anxiety and depression; Pre-op testing 12/29/2023 Telephone Adult [address] [phone] Alex Blackwell MD Medication Problem 12/28/2023 10:00 AM EST Office Visit [address] [phone] Alex Blackwell MD Primary hypertension (Primary Dx); PSVT (paroxysmal supraventricular tachycardia) (CMS/HCC); Anxiety and depression; Ileostomy status (CMS/HCC); Hypomagnesemia; CKD (chronic kidney disease) stage 2, GFR 60-89 ml/min; Spondylosis of cervical region without myelopathy or radiculopathy; Restless leg syndrome; Age-related osteoporosis without current pathological fracture; Chronic anemia; Screening for thyroid disorder; Eczema, unspecified type from Last 3 Months Immunizations Name Administration Dates Next Due Pneumococcal conjugate 13 va lent (Prevnar 13, PCV13) 2mo and older 12/13/2017 Tdap Tetanus diptheria acell ular pertussis (Boostrix; Adacel) 7yo and older 10/11/2022,10/05/2011 Surgical History Surgery Date Site/Laterality Comments DENTAL SURGERY PROCEDURE: [place] UNLISTED PROCEDURE DENTOALVEOLAR STRUCTURES OTHER SURGICAL HISTORY 1974 PROCEDURE: [place] LIG/TRNSXJ FLP TUBE ABDL/VAG APPR UNI/BI TONSILLECTOMY ADENOIDECTOMY, BILATERAL MYRINGOTOMY AND TUBES PROCEDURE: [place] TONSILLECTOMY & ADENOIDECTOMY <AGE 13 APPENDECTOMY 1960 PROCEDURE: [place] APPENDECTOMY OTHER SURGICAL HISTORY 08/20/2015 PROCEDURE: ---- OTHER ----; COMMENT: total colectomy BREAST SURGERY late Left PROCEDURE: [place] UNLISTED PROCEDURE BREAST; COMMENT: benign OTHER SURGICAL HISTORY 2015 PROCEDURE: [place] COLECTOMY PRTL W/RMVL TERMINAL ILEUM & ILEOCOLOS; COMMENT: related to Cdiff colitis BREAST BIOPSY Left PROCEDURE: BX BREAST; PERC NEEDLE CORE W/IMAG GUID; COMMENT: benign-in the s FLEXIBLE SIGMOIDOSCOPY Medical History Medical History Date Comments Lumbago 05/16/2005 DX:Lumbago Depressive disorder, not els ewhere classified 05/16/2005 DX:Depressive disorder, not elsewhere classified Actinic keratosis, hx of DX:Acti nam keratosis, hx of Afib (CMS/HCC) DX:Afib (HCC); C OMMENT: takes Cardizem S/P partial colectomy DX:S/P par tial colectomy Lumbar radiculitis 01/04/2007 DX:Lumbar rad iculitis 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 02/03/2023 DX:Spondylosis of cervical region without myelopathy or radiculopathy Mixed hyperlipidemia DX:Mixed hy perlipidemia Osteoporosis DX:Osteoporosis Hypertension Postmenopausal bleeding Family History Medical History Relation Name Comments Other: sepsis Father age 7 9 Heart attack Mother at the age of 4 6 Breast cancer Neg Hx Ovarian cancer Neg Hx Pancreatic cancer Neg Hx Prostate cancer Neg Hx Uterine cancer Neg Hx Relation Name Status Comments Father Mother Social History Tobacco Use Types Packs/Day Years Used Date Smoking Tobacco: Former Cigarettes Q uit: 04/07/1985 Smokeless Tobacco: Never Tobacco Cessation:Counseling Given: Not Answered Alcohol Use Standard Drinks/Week Comments No 0 (1 standard drink = 0.6 oz pur e alcohol) Housing Instability Answer Date Recorde d Are you worried that in the next 2 months you may not have stable housing? No 12/28/2023 Food Access & Nutrition Answer Date Rec orded Do you have access to a vari ety of food including fruits and vegetables? Yes 12/28/2023 Access to Healthcare Answer Date Record ed Within the last 3 months, ho w many times did you visit the emergency department for your medical care? 0 12/28/2023 Health Literacy Answer Date Recorded How often do you need to hav e someone help you when you read instructions, pamphlets, or other written material from your doctor or pharmacy? Never 12/28/2023 Caregiver: How often do you need to have someone help you when you read instructions, pamphlets, or other written material from your doctor or pharmacy? Not on file 12/28/2023 Financial Risk Answer Date Recorded How hard is it for you to pa y for the very basics like food, housing, medical care, and air conditioning / heating? Not very hard 12/28/2023 Transportation Answer Date Recorded Has the lack of transportati on kept you from meetings, work, or from getting things needed for daily living? No Has the lack of transportati on kept you from medical appointments or from getting medications? No 12/28/2023 Social Isolation Answer Date Recorded How often do you feel lonely or isolated from those around you? Sometimes 12/28/2023 Food Risk Answer Date Recorded Within the past 12 months we worried whether our food would run out before we got money to buy more. Never true 12/28/2023 Within the past 12 months th e food we bought just didn't last and we didn't have money to get more. Never true 12/28/2023 Dependent Care Answer Date Recorded Do you need help finding or paying for care for your loved ones. For example, school childcare attendant or elderly care for an older adult? No 12/28/2023 Education Answer Date Recorded Do you think completing more education or training, like finishing a GED, going to college, or learning a trade, would be helpful for you? No 12/28/2023 Employment and Income Answer Date Recor ded During the last four weeks, have you been actively looking for work? No 12/28/2023 Living Situation Answer Date Recorded What is your living situation? 1 02/26/2023 Interpersonal Safety Answer Date Record ed Physical Abuse 01/26/2024 Verbal Abuse 01/26/2024 Sex and Gender Information Value Date Recorded Sex Assigned at Female 01/26/2024 11:09 AM EST Gender Identity Female 12/21/2023 4:33 PM EDT Sexual Orientation Straight 12/21/2023 4: 33 PM EDT Job Start Date Occupation Industry Not on file Not on file Not on file Obstetrics History Last Filed Vital Signs Vital Sign Reading Time Taken Comments Blood Pressure 114/52 01/26/2024 1:42 PM EST Pulse 55 01/26/2024 1:42 PM EST Temperature 36.3 ??C (97.3 ??F) 01/26/2024 1:42 PM ES T Respiratory Rate 15 01/26/2024 1:30 PM EST Oxygen Saturation 95% 01/26/2024 1:42 PM EST Inhaled Oxygen Concentration - - Weight 46.3 kg (102 lb) 01/26/2024 11:48 AM EST Height 157.5 cm (5' 2 ) 01/26/2024 11:48 AM EST Body Mass Index 18.66 01/26/2024 11:48 AM EST Plan of Treatment Upcoming Encounters Date Type Department Care Team (Late st Contact Info) Description 06/24/2024 8:30 AM EDT Office Visit Adult Medicine [address] [phone] Gracie Roe PA [address] [place] [phone] 09/26/2024 9:50 AM EDT Appointment Radiology Department - [address] [phone] Health Maintenance Due Date Last Done Comments Zoster Vaccines (1 of 2) 1964 Pneumococcal Vaccine: 65+ Years (2 of 2 - PPSV23 or PCV20) 02/07/2018 12/13/2017 COVID-19 Vaccine (3 - Modern a risk series) 09/14/2020 08/17/2020, 07/20/2020 RSV Immunization Patients 60 + Years Old (1 - 1-dose 75+ series) 2021 Colorectal Cancer Screening: Stool Based Tests (FOBT/FIT) 01/29/2022 Influenza Vaccine (#1) 2023 Osteoporosis Screening (Bone Density Screening) 01/07/2024 01/06/2023, 03/13/2019, 05/17/2016 Depression Screening 12/27/2024 12/28/2023 Social Influencers of Health Screening 12/27/2024 12/28/2023 Hypertension/CHF/CAD Annual BMP Blood Test 01/03/2025 01/04/2024, 05/19/2023 Falls Risk Assessment 01/25/2025 01/26/2024 Cholesterol Screening (Lipid Panel) 03/24/2028 03/24/2023 DTaP,Tdap,and Td Vaccines (3 - Td or Tdap) 10/11/2032 10/11/2022, 10/05/2011 Hepatitis C Screening Completed 10/09/2012 Colorectal Cancer Screening: Colonoscopy Discontinued 12/07/2023 HIB Vaccines Aged Out No longer eligi ble based on patient's age to complete this topic HPV Vaccines Aged Out No longer eligi ble based on patient's age to complete this topic Hepatitis A Vaccines Aged Out No long er eligible based on patient's age to complete this topic Hepatitis B Vaccines Aged Out No long er eligible based on patient's age to complete this topic IPV Vaccines Aged Out No longer eligi ble based on patient's age to complete this topic MMR Vaccines Aged Out No longer eligi ble based on patient's age to complete this topic Meningococcal ACWY Vaccine Aged Out N o longer eligible based on patient's age to complete this topic RSV Immunization Patients Under 20 months Aged Out No longer eligible based on patient's age to complete this topic Varicella Vaccines Aged Out No longer eligible based on patient's age to complete this topic Procedures Procedure Name Priority Date/Time Associated Diagnosis Comments TISSUE EXAM Routine 01/26/2024 12:37 PM EST Postmenopausal bleeding TH AN LMA(NO CHARGE) Routine 01/26/2024 12:24 PM EST [place] HYSTEROSCOPY W/BIOPSY ENDOMETRIUM AND/OR POLYPECTOMY W/O AND/OR W/D&C 01/26/2024 12:09 PM EST Postmenopausal bleeding Case Notes MYOSURE Special Needs MYOSURE ECG 12-LEAD Routine 01/22/2024 11:16 AM EST Preop examination CBC WITH AUTO DIFFERENTIAL Routine 01/04/2024 11:25 AM EST Primary hypertension Ileostomy status (CMS/HCC) Hypomagnesemia CKD (chronic kidney disease) stage 2, GFR 60-89 ml/min Anxiety and depression Spondylosis of cervical region without myelopathy or radiculopathy Restless leg syndrome Age-related osteoporosis without current pathological fracture Chronic anemia Screening for thyroid disorder CBC AND DIFFERENTIAL Routine 01/04/2024 11:25 AM EST Primary hypertension Ileostomy status (CMS/HCC) Hypomagnesemia CKD (chronic kidney disease) stage 2, GFR 60-89 ml/min Anxiety and depression Spondylosis of cervical region without myelopathy or radiculopathy Restless leg syndrome Age-related osteoporosis without current pathological fracture Chronic anemia Screening for thyroid disorder BASIC METABOLIC PANEL Routine 01/04/2024 11:25 AM EST Primary hypertension Ileostomy status (CMS/HCC) Hypomagnesemia CKD (chronic kidney disease) stage 2, GFR 60-89 ml/min Anxiety and depression Spondylosis of cervical region without myelopathy or radiculopathy Restless leg syndrome Age-related osteoporosis without current pathological fracture Chronic anemia Screening for thyroid disorder MAGNESIUM Routine 01/04/2024 11:25 AM EST Primary hypertension Ileostomy status (CMS/HCC) Hypomagnesemia CKD (chronic kidney disease) stage 2, GFR 60-89 ml/min Anxiety and depression Spondylosis of cervical region without myelopathy or radiculopathy Restless leg syndrome Age-related osteoporosis without current pathological fracture Chronic anemia Screening for thyroid disorder THYROID STIMULATING HORMONE WITH REFLEX TO FREE T4 AND FREE T3 Routine 01/04/2024 11:25 AM EST Primary hypertension Ileostomy status (CMS/HCC) Hypomagnesemia CKD (chronic kidney disease) stage 2, GFR 60-89 ml/min Anxiety and depression Spondylosis of cervical region without myelopathy or radiculopathy Restless leg syndrome Age-related osteoporosis without current pathological fracture Chronic anemia Screening for thyroid disorder COLONOSCOPY Routine 12/07/2023 4:44 PM EDT LIPID PANEL Routine 03/24/2023 DXA BONE DENSITY STUDY 1+ SITS AXIAL SKEL Routine 01/06/2023 10:23 AM EST Other specified disorders of bone density and structure, unspecified site HM HEPATITIS C SCREENING Routine 10/09/2012 from Last 3 Months or Most Recently Relevant to Health Maintenance Results * Tissue exam (01/26/2024 12:37 PM EST) Final Diagnosis Endometrial curettings: Benign myometrium No endometrium identified 01/29/2024 11:[address] [facility] Comment Although submitted as an endometrial biopsy, Dr. Gambino's operative note confirms the specimen to be curettings: 01/29/2024 11:[address] [facility] Gross Description A. Endometrium, EMS: Labeled Endo EMS . Received in formalin, on Telfa, is a 1.0 x 0.5 x 0.1 cm aggregate of soft, wyatt-pink to red tissue admixed with blood-streaked mucoid material, which is wrapped in paper and submitted in toto in one cassette, multiple pieces, x2. TS 01/29/2024 11:[address] [facility] Disclaimer Unless otherwise specified, all tissue is 10% NB formalin fixed and paraffin embedded. 01/29/2024 11:[address] [facility] Tissue Endometrial structure / Unknown 01/26/2024 12:37 PM EST 01/26/2024 1:28 PM EST Shantell Gambino MD LAB PATHOLOGY ORDER [facility] [address] [place] [address], * TH AN LMA(NO CHARGE) (01/26/2024 12:24 PM EST) Narrative Jose Frausto MD - 01/26/2024 12:24 PM EST Jose Frausto MD ? 01/28/2024 ??7:20 AM General Information and Staff Patient location during procedure: OR Anesthesiologist: Jose Frausto MD Performed by: DESI Ohara Authorized by: Jose Frausto MD ?? Intubation Urgency: elective Final Airway Details Number of attempts at approach: 1 Ventilation between attempts: supraglottic airwayFinal airway type: LMA Indications and Patient Condition Indications for airway management: anesthesia Spontaneous ventilation: present Sedation level: Yes Preoxygenated: yes Soft Tissue Damage: No Dentition Unchanged: Yes Jose Frausto MD ANESTHESIA ORDERABLE S * ECG 12 lead (01/22/2024 11:16 AM EST) Narrative Alex Blackwell MD - 01/22/2024 11:16 AM EST Technically poor EKG. ??Normal sinus rhythm, no acute ST-T changes. Alex Blackwell MD ECG ORDERABLES * Thyroid stimulating hormone with reflex to free t4 and free t3 (01/04/2024 11:25 AM EST) TSH 0.83 0.40 - 4.00 mcIU/mL LAB CHEMISTRY METHOD 01/04/2024 4:57 PM EST [facility] Blood Venous blood specimen / Unknown Venipuncture / Unknown 01/04/2024 11:25 AM EST 01/04/2024 11:26 AM EST Alex Blackwell MD LAB BLOOD ORDERABLE S [facility] [address] [place] [address], * CBC auto differential (01/04/2024 11:25 AM EST) WBC 5.4 4.8 - 10.8 K/mcL LAB HEMETOLOGY METHOD 01/04/2024 3:34 PM EST [facility] RBC 4.00 3.80 - 4.80 M/mcL LAB HEMETOLOGY METHOD 01/04/2024 3:34 PM EST [facility] Hemoglobin 12.5 11.5 - 16.0 g/dL LAB HEMETOLOGY METHOD 01/04/2024 3:[address] [facility] Hematocrit 38.5 35.0 - 47.0 % LAB HEMETOLOGY METHOD 01/04/2024 3:[address] [facility] MCV 96.3 79.0 - 98.0 FL LAB HEMETOLOGY METHOD 01/04/2024 3:[address] [facility] MCH 31.3 27.0 - 32.0 pcg LAB HEMETOLOGY METHOD 01/04/2024 3:[address] [facility] MCHC 32.5 32.0 - 37.0 g/dL LAB HEMETOLOGY METHOD 01/04/2024 3:[address] [facility] RDW 13.2 11.0 - 15.0 % LAB HEMETOLOGY METHOD 01/04/2024 3:[address] [facility] Platelets 191 130 - 400 K/mcL LAB HEMETOLOGY METHOD 01/04/2024 3:[address] [facility] MPV 9.1 7.0 - 11.0 FL LAB HEMETOLOGY METHOD 01/04/2024 3:[address] [facility] NRBC 0.0 <1.0 % LAB HEMETOLOGY METHOD 01/04/2024 3:[address] [facility] NRBC Absolute 0.00 <0.10 K/mcL LAB HEMETOLOGY METHOD 01/04/2024 3:[address] [facility] Neutrophils Relative 44.4 % LAB HEMETOLOGY METHOD 01/04/2024 3:[address] [facility] Lymphocytes Relative 43.8 % LAB HEMETOLOGY METHOD 01/04/2024 3:[address] [facility] Monocytes Relative 9.4 % LAB HEMETOLOGY METHOD 01/04/2024 3:[address] [facility] Eosinophils Relative 1.8 % LAB HEMETOLOGY METHOD 01/04/2024 3:34 PM EST [facility] Basophils Relative 0.2 % LAB HEMETOLOGY METHOD 01/04/2024 3:34 PM EST [facility] Immature Granulocytes Relative 0.4 % LAB HEMETOLOGY METHOD 01/04/2024 3:34 PM EST [facility] Neutrophils Absolute 2.40 1.50 - 7.00 K/mcL LAB HEMETOLOGY METHOD 01/04/2024 3:34 PM EST [facility] Lymphocytes Absolute 2.37 1.00 - 5.00 K/mcL LAB HEMETOLOGY METHOD 01/04/2024 3:34 PM EST [facility] Monocytes Absolute 0.51 0.20 - 1.00 K/mcL LAB HEMETOLOGY METHOD 01/04/2024 3:34 PM EST [facility] Eosinophils Absolute 0.10 0.00 - 0.50 K/mcL LAB HEMETOLOGY METHOD 01/04/2024 3:34 PM EST [facility] Basophils Absolute 0.01 0.00 - 0.20 K/mcL LAB HEMETOLOGY METHOD 01/04/2024 3:34 PM EST [facility] Immature Granulocytes Absolute 0.02 0.00 - 0.03 K/mcL LAB HEMETOLOGY METHOD 01/04/2024 3:34 PM EST [facility] Blood Venous blood specimen / Unknown Venipuncture / Unknown 01/04/2024 11:25 AM EST 01/04/2024 11:26 AM EST Alex Blackwell MD LAB BLOOD ORDERABLE S [facility] [address] [place] [address], * (ABNORMAL) Magnesium (01/04/2024 11:25 AM EST) Magnesium 1.7(L) 1.9 - 2.6 mg/dL LAB CHEMISTRY METHOD 01/04/2024 4:[address] [facility] Blood Venous blood specimen / Unknown Venipuncture / Unknown 01/04/2024 11:25 AM EST 01/04/2024 11:26 AM EST Alex Blackwell MD LAB BLOOD ORDERABLE S [facility] [address] [place] [address], [place] [phone] * (ABNORMAL) Basic metabolic panel (01/04/2024 11:25 AM EST) Sodium 135 133 - 145 mmol/L LAB CHEMISTRY METHOD 01/04/2024 4:[address] [facility] Potassium 3.8 3.5 - 5.5 mmol/L LAB CHEMISTRY METHOD 01/04/2024 4:[address] [facility] Chloride 101 96 - 110 mmol/L LAB CHEMISTRY METHOD 01/04/2024 4:[address] [facility] CO2 30 21 - 32 mmol/L LAB CHEMISTRY METHOD 01/04/2024 4:[address] [facility] Anion Gap 4 3 - 11 LAB CHEMISTRY METHOD 01/04/2024 4:[address] [facility] Glucose 104(H) 70 - 100 mg/dL LAB CHEMISTRY METHOD 01/04/2024 4:[address] [facility] BUN 21 5 - 25 mg/dL LAB CHEMISTRY METHOD 01/04/2024 4:[address] [facility] Creatinine 1.11(H) 0.50 - 1.10 mg/dL LAB CHEMISTRY METHOD 01/04/2024 4:[address] [facility] eGFR 51(L) >=60 mL/min/1. 73m2 LAB CHEMISTRY METHOD 01/04/2024 4:[address] [facility] Comment:Calculation based on the??Chronic Kidney Disease Epidemiology Collaboration (CKD-EPI) equation refit??without adjustment for race. BUN/Creatinine Ratio 18.9 LAB CHEMISTRY METHOD 01/04/2024 4:50 PM EST [facility] Calcium 9.6 8.5 - 10.5 mg/dL LAB CHEMISTRY METHOD 01/04/2024 4:50 PM EST [facility] Blood Venous blood specimen / Unknown Venipuncture / Unknown 01/04/2024 11:25 AM EST 01/04/2024 11:26 AM EST Alex Blackwell MD LAB BLOOD ORDERABLE S [facility] [address] [place] [address], * COLONOSCOPY (12/07/2023 4:44 PM EDT) Anatomical Region Laterality Modality Endoscopy Historical Provider GI~PROCEDURE ORDE DONIS * (ABNORMAL) Lipid panel (03/24/2023) LDL/HDL Ratio 2 0 - 4 Triglycerides 93 0 - 150 mg/dL Cholesterol 286(A) 0 - 200 mg/dL HDL 121 40 mg/dL LDL Cholesterol 147(A) 0 - 100 mg/dL Blood Venous blood specimen / Unknown Historical Provider LAB BLOOD ORDERAB LES * DXA BONE DENSITY STUDY 1+ SITS AXIAL SKEL (01/06/2023 10:23 AM EST) Anatomical Region Laterality Modality Bone Densitometr y 07/19/2022 11:5 0 AM EDT Narrative 01/06/2023 4:04 PM EST BONE DENSITY ? Lumbar Spine T-score is -1.5 ?? (SD relative to 20-29 y/o adult) Z-score is +1.0 ??(SD relative to age matched peers) This is consistent with osteopenia by criteria defined by the WHO. Left Hip T-score is -2.7 Z-score is -0.6 This is consistent with osteoporosis by criteria defined by the WHO. Comparison exam(s): significant decrease in bone density of ??hip when compared to most recent bone density examination ?? Confidence level is +/-95%. Impression: Based on the World Health Organization criteria, Kacey Kate should be classified as having osteoporosis. The [facility] Department of Internal Medicine recommends using National Osteoporosis Foundation (NOF) guidelines in treatment decisions related to osteoporosis. NOF guidelines suggest considering treatment for postmenopausal women and men aged 50 or older presenting with the following: History of hip or vertebral fracture. T-score less than or equal to -2.5 (DXA) at the femoral neck, total hip, or spine, after appropriate evaluation to exclude secondary causes. Low bone mass (T-score between -1.0 and -2.5 at the femoral neck or spine) AND a 10-year probability of a hip fracture greater than or equal to 3% OR a 10-year probability of a major osteoporosis-related fracture greater than or equal to 20% based on the [place]-adapted WHO algorithm Please note that all treatment decisions require clinical judgment and consideration of individual patient factors, including patient preferences, co-morbidities, previous drug use, risk factors not captured in the FRAX model (e.g., frailty, falls, vitamin D deficiency, increased bone turnover, interval significant decline in bone density) and possible under- or over-estimation of fracture risk by FRAX. Procedure Note Kenan Sullivan MD - 03/27/2023 BONE DENSITY Lumbar Spine T-score is -1.5 (SD relative to 20-29 y/o adult) Z-score is +1.0 (SD relative to age matched peers) This is consistent with osteopenia by criteria defined by the WHO. Left Hip T-score is -2.7 Z-score is -0.6 This is consistent with osteoporosis by criteria defined by the WHO. Comparison exam(s): significant decrease in bone density of hip whencompared to most recent bone density examination Confidence level is +/-95%. Impression: Based on the World Health Organization criteria, Kacey Neffbarbeidarryn shouldbe classified as having osteoporosis. [facility] of Internal Medicine recommendsusing National Osteoporosis Foundation (NOF) guidelines in treatmentdecisions related to osteoporosis. NOF guidelines suggest consideringtreatment for postmenopausal women and men aged 50 or older presentingwith the following: History of hip or vertebral fracture. T-score less than or equal to -2.5 (DXA) at the femoral neck, total hip,or spine, after appropriate evaluation to exclude secondary causes. Low bone mass (T-score between -1.0 and -2.5 at the femoral neck or spine)AND a 10-year probability of a hip fracture greater than or equal to 3% ORa 10-year probability of a major osteoporosis-related fracture greaterthan or equal to 20% based on the [place]-adapted WHO algorithm Please note that all treatment decisions require clinical judgment andconsideration of individual patient factors, including patientpreferences, co-morbidities, previous drug use, risk factors not capturedin the FRAX model (e.g., frailty, falls, vitamin D deficiency, increasedbone turnover, interval significant decline in bone density) and possibleunder- or over-estimation of fracture risk by FRAX. Gracie MCKINNON IMG DXA PROCEDUR ES * Hepatitis C Screening (10/09/2012) [facility] Hepatitis C Screening Abstracted Historical Provider MD ALICIA Cheek from Last 3 Months or Most Recently Relevant to Health Maintenance Advance Directives Documents on File Type Date Recorded Patient Visual Associate Expl anation Health Care Decision (hx) 01/29/2020 AD ARNOLD DIRECTIVE Health Care Decision (hx) 01/29/2020 AD ARNOLD DIRECTIVE Health Care Decision (hx) 01/29/2020 AD ARNOLD DIRECTIVE Health Care Decision (hx) 01/29/2020 AD ARNOLD DIRECTIVE Health Care Decision (hx) 01/29/2020 AD ARNOLD DIRECTIVE Health Care Decision (hx) 01/29/2020 AD ARNOLD DIRECTIVE Health Care Decision (hx) 01/29/2020 AD ARNOLD DIRECTIVE Health Care Decision (hx) 01/29/2020 AD ARNOLD DIRECTIVE Health Care Decision (hx) 01/28/2020 AD ARNOLD DIRECTIVE Health Care Decision (hx) 01/28/2020 AD ARNOLD DIRECTIVE Health Care Decision (hx) 01/28/2020 AD ARNOLD DIRECTIVE Health Care Decision (hx) 01/28/2020 AD ARNOLD DIRECTIVE Health Care Decision (hx) 01/28/2020 AD ARNOLD DIRECTIVE Health Care Decision (hx) 01/28/2020 AD ARNOLD DIRECTIVE Health Care Decision (hx) 01/28/2020 AD ARNOLD DIRECTIVE Health Care Decision (hx) 01/28/2020 AD ARNOLD DIRECTIVE Care Teams Etl Analyst Developer Relationship Specialty Start Date End Date Alex Blackwell MD [address] [place] [address] PCP - General Internal Medicine 09/28/21
== END 2024-03-27 10:26 | disposition home or self-care (01) ==
PROVIDERS: PCP Internal Medicine; Visit Provider Internal Medicine
DX: G89.4 Chronic pain syndrome (principal); Z79.891 Long term (current) use of opiate analgesic
CPT/HCPCS: 99213

== ENCOUNTER 2024-04-24 09:26 | Outpatient (AMB) | payer OTHER, SELFPAY ==
--- NOTE | 2024-04-24 09:29 | MHC.OFFVIS ---
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 Allergies codeine [CODEINE] Allergy (Unknown, Verified 04/24/24 09:32) NAUSEA & VOMITING Antihistamines - Alkylamine Adverse Reaction (Severe, Verified 04/24/24 09:32) heart palpitations Medication List - Last Reconciled 04/24/24 by Melinda Segovia LPN alendronate 70 mg PO QWEEK atorvastatin 20 mg PO DAILY calcium carbonate-vitamin D3 600 mg-10 mcg (400 unit) 1 tab PO BID citalopram 40 mg PO DAILY diltiazem HCl ER 120 mg PO DAILY flecainide 100 mg PO BID fluticasone propionate 50 mcg/actuation intranasal gabapentin 300 mg PO BEDTIME 30 days magnesium oxide 400 mg PO DAILY naloxone 4 mg/actuation (Narcan) 4 mg intranasal Q2M 1 day oxycodone 15 mg PO QID PRN 30 days HPI HPI PILL COUNT: Details: History of Present Illness The patient is a 78-year-old female presenting with concerns regarding her chronic pain management regimen involving oxycodone administration. She reports the medication's effect lasts approximately three to four hours, leading to issues like yawning and hot flashes during periods between doses. Despite this, the patient reports effective pain relief during the night and denies constipation, a usual symptom of opioid use. Experiences of side effects were highlighted, yet not specifically detailed, alongside an inefficacy of past attempts to increase dosage due to a lack of sustained improvement. No apparent aberrant drug-seeking behaviors or significant mood impacts from the medication usage were mentioned. Pill count was consistent. Pain Description - Medication onset and effect duration: Approximately three and a half to four hours. - Symptoms experienced between doses: Yawning, hot flashes. - Overall pain relief from oxycodone regimen: Effective for nighttime coverage. - Side effects mentioned: Non-specific; no constipation reported. - Tolerance and dosage increase: Past increases provided transient improvement only. - Management of dosing: Adjustments needed in the timing to manage symptoms. Physical Exam - Appears afebrile. - Alert and oriented. - Mood and affect appropriate. - Follows and participates in conversation appropriately. - Respiratory effort is unlabored. - Able to transition from sit to stand unassisted. - Ambulates with bilaterally normal heel strike and toe off. - Able to stand and walk on toes and heels. Results Pain Management - Affect: No specific psychological concerns identified from the conversation. - Analgesia: Oxycodone 15 mg four times daily; effective overall, specifically during nights. - Adverse Effects: Yawning, hot flashes between doses; no constipation. - Activities of Daily Living: Requires consideration in managing dosing to alleviate symptoms between doses. - Aberrant Drug Related Behaviors: No aberrant behaviors identified. [facility] Medical History (Updated 08/19/22 @ 09:39 by Victor Manuel Mckeon MD) Insomnia Restless legs syndrome (RLS) Clostridium difficile colitis Opioid dependence Depression Lumbar radiculitis Osteoporosis Atrial tachycardia Anxiety Fatigue Heart palpitations Arthritis Restless leg Surgical History History of creation of ostomy History of partial colectomy Family History Family/Other Alzheimer disease Social History Alcohol intake: never Patient Tobacco Use Status: Former Tobacco user Substance Use Type: Prescription Drugs Physical Exam Vital Signs: Last Vital Signs Pulse 63 04/24/24 09:30 Resp 16 04/24/24 09:30 BP 169/74 H 04/24/24 09:30 Pulse Ox 99 04/24/24 09:30 Oxygen Delivery Method Room Air 04/24/24 09:30 BMI result Body Mass Index 18.3 Assessment & Plan Assessment & Plan (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 While there are issues of breakthrough symptoms managed by dosing intervals, increasing the dosage is not planned due to limited past efficacy. Monitoring and adjusting the timing of the doses will help manage the symptoms between doses. The next medication refill is planned for May 10, with a follow-up to evaluate any further adjustments needed. Patient was informed and verbally consented to the use of an ambient scribe for clinic note documentation during this visit. Discussion Notes During our discussion, we reviewed the current pain management strategy focusing on the efficacy of oxycodone and the patient's experiences with side effects. We concluded that despite some breakthrough symptoms and side effects between doses, the current regimen should be continued as it predominantly manages nighttime pain effectively. The potential for dose increases was discussed, noting past experiences with limited long-term benefits and an increased risk of tolerance. We outlined monitoring and adjusting the dosing intervals as a management strategy. A review of options and consensus was reached, with a scheduled follow-up to reassess the management plan?s efficiency and to address any future concerns. Patient Instructions - Continue taking oxycodone 15 mg four times a day as prescribed. - Adjust the dosing intervals as needed to manage symptoms experienced between doses, following the prescribed amount. - Watch for any new side effects and report them during the next follow-up. - Prepare for the medication refill on May 10. - Attend the next scheduled appointment to reassess the pain management regimen. Medications: Refilled oxycodone Partial Fill upon patient request. 15 mg PO QID PRN 120 tabs 0RF pain, severe 30 days G89.4 - Chronic pain syndrome, M54.16 - Radiculopathy, lumbar region Coding Level of Care Code Est Pt Level 3 (70717) Diagnoses residential current use of opiate analgesic Z79.891 Pain syndrome, chronic G89.4
[2024-04-24 09:30] VITALS: BP 169/74; PULSE 63; RESP 16; O2SAT 99; BMI 18.3
--- OUTSIDE RECORDS SUMMARY | 2024-04-24 10:35 | XMS_ITS | Clinical Summary ---
Author Organization [facility] Address [address] [place] [address] Phone Care Team Providers Care Supercharger Mechanic Name Role Phone Alex Blackwell MD Primary Care Provider Allergies Active Allergy Reactions Criticality Noted Date Comments Codeine Nausea And Vomiting 01/08/2024 Medications alendronate (FOSAMAX) 70 mg tablet Take 1 Tablet by mouth every 7 days. 11/04/19 23 Active calcium carbonate-javad min D (Calcium with Vitamin D) 600 mg-10 mcg (400 unit) per tablet Take 1 Tablet by mouth 2 times daily. 08/13/19 23 Active dilTIAZem XR (DILACOR XR) 120 mg 24 hr capsule 1 capsule (120 mg total) 1 (one) time each day. 12/02/19 23 Active flecainide (TAMBOCOR) 100 mg tablet TAKE 1 TABLET TWICE A DAY 07/26/19 24 Active gabapentin (NEURONTIN) 300 mg capsule TAKE 1 CAPSULE BY MOUTH AT 10PM AND 1 CAPSULE BY MOUTH AT 1130PM NEEDED FOR PAIN 05/03/19 24 Active oxyCODONE (ROXICODONE) 15 mg immediate release tablet Take 1 tablet (15 mg total) by mouth 4 (four) times a day if needed. 10/03/19 21 Active lactose-reduce d food (BOOST ORAL) Take 1 Can by mouth 2 times daily. MARCOS- 6 months 1 can twice a day 60 cans per month with 5 refills 11/04/19 23 Active dilTIAZem (CARDIZEM) 30 mg immediate release tablet Take 1 Tablet by mouth as needed (prn prolonged palpitations can take every 6 hours) for up to 360 days. Active venlafaxine XR (EFFEXOR-XR) 37.5 mg 24 hr capsule Take 1 capsule (37.5 mg total) by mouth 1 (one) time each day. Do not crush or chew. 90 each 1 12/28/19 24 Active magnesium oxide (MAG-OX) 400 mg (241.3 elemental magnesium) tablet Take 1 tablet (400 mg total) by mouth 2 (two) times a day. 180 tablet 1 01/04/20 24 Active citalopram (CeleXA) 40 mg tablet TAKE 1 TABLET BY MOUTH EVERY DAY 90 tablet 1 02/06/20 24 Active lisinopriL (PRINIVIL,ZEST RIL) 10 mg tablet TAKE 1 TABLET BY MOUTH 1 TIME EACH DAY. 90 tablet 1 03/27/19 25 Active lisinopriL (PRINIVIL,ZEST RIL) 10 mg tablet Take 1 tablet (10 mg total) by mouth 1 (one) time each day. 30 each 2 12/28/19 24 025 Discontinued Active Problems Problem Noted Date Diagnosed Date [...] take NSAIDS. She was encouraged to ask detective if one time pre-procedure dose would be OK. She is on Oxycodone chronically. We also discussed option for placement of paracervical block for pain control. All questions answered. 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 Izquierdo Mixed hyperlipidemia 11/07/2014 Actinic keratoses 07/17/2013 Overview (11/21/2023): Actinic keratoses Osteoporosis 05/26/2012 Overview (11/21/2023): DXA 03/13/19 Left hip- -2.5 Lumbar spine- -1.3 Radiculitis, lumbosacral 03/12/2011 Overview (11/21/2023): Follow up with [facility]. Receiving oxycodone and Belbuca patches from specialist office for pain control. Lumbar radiculitis 01/04/2007 Anxiety and depression 05/16/2005 Encounters Date Type Department Care Team Description 01/26/2024 12:30 PM EST - 01/26/2024 1:45 PM EST Surgery [facility] OR [address] [place] [phone] Shantell Gambino MD HYSTEROSCOPY D&C [[id number] (CPT??)] 01/26/2024 12:09 PM EST Anesthesia Event [facility] OR [address] [place] [phone] Jose Frausto MD Moccia, Lauren, SRNA 01/26/2024 11:13 AM EST - 01/26/2024 2:24 PM EST Hospital Encounter [facility] OR [address] [place] [phone] Shantell Gambino MD Postmenopausal bleeding Discharge Disposition: Home or Self Care from Last 3 Months Immunizations Name Administration Dates Next Due Pneumococcal conjugate 13 va lent (Prevnar 13, PCV13) 2mo and older 12/13/2017 Tdap Tetanus diptheria acell ular pertussis (Boostrix; Adacel) 7yo and older 10/11/2022,10/05/2011 Surgical History Surgery Date Site/Laterality Comments DENTAL SURGERY PROCEDURE: [place] UNLISTED PROCEDURE DENTOALVEOLAR STRUCTURES OTHER SURGICAL HISTORY 1974 PROCEDURE: [facility] LIG/TRNSXJ FLP TUBE ABDL/VAG APPR UNI/BI TONSILLECTOMY ADENOIDECTOMY, BILATERAL MYRINGOTOMY AND TUBES PROCEDURE: VA TONSILLECTOMY & ADENOIDECTOMY <AGE 12 APPENDECTOMY 1960 PROCEDURE: VA APPENDECTOMY OTHER SURGICAL HISTORY 08/20/2015 PROCEDURE: ---- OTHER ----; COMMENT: total colectomy BREAST SURGERY late Left PROCEDURE: [place] UNLISTED PROCEDURE BREAST; COMMENT: benign OTHER SURGICAL HISTORY 2015 PROCEDURE: VA COLECTOMY PRTL W/RMVL TERMINAL ILEUM & ILEOCOLOS; COMMENT: related to Cdiff colitis BREAST BIOPSY Left PROCEDURE: BX BREAST; PERC NEEDLE CORE W/IMAG GUID; COMMENT: benign-in the FLEXIBLE SIGMOIDOSCOPY Medical History Medical History Date [...] care for your loved ones. For example, child specialist or elderly care for an older adult? [...] ed Physical Abuse 01/26/2024 Verbal Abuse 01/26/2024 Comments No Sex and Gender Information Value Date Recorded Sex Assigned at Female 01/26/2024 11:09 AM EST Legal Sex Female 6:33 AM EST Gender Identity Female 12/21/2023 4:33 PM EDT Sexual Orientation Straight 12/21/2023 4: 33 PM EDT Obstetrics History Last Filed Vital Signs Vital [...] 8:30 AM EDT Office Visit Adult Medicine [address] [phone] Gracie Roe PA [address] [place] [id number] 09/26/2024 9:50 AM EDT Appointment Radiology Department - [address] [phone] Health Maintenance Due Date Last Done Comments Zoster Vaccines (1 of 2) 1964 Pneumococcal Vaccine: 50+ Years (2 of 2 - PPSV23) 02/07/2018 12/13/2017 COVID-19 Vaccine (3 - Modern [...] patient's age to complete this topic Meningococcal B Vacine Aged Out No lo nger eligible based on patient's age to complete [...] LMA(NO CHARGE) Routine 01/26/2024 12:24 PM EST VA HYSTEROSCOPY W/BIOPSY ENDOMETRIUM AND/OR POLYPECTOMY W/O AND/OR W/D&C 01/26/2024 12:09 PM EST Postmenopausal bleeding Case Notes MYOSURE Special Needs MYOSURE BASIC METABOLIC PANEL Routine 01/04/2024 11:25 AM [...] of bone density and structure, unspecified site HEPATITIS C SCREENING Routine 10/09/2012 from Last 3 Months or Most Recently Relevant to Health Maintenance Results * Tissue exam (01/26/2024 12:37 PM EST) Final Diagnosis Endometrial curettings: Benign myometrium No endometrium identified 01/29/2024 11:22 AM SEFERINO CARMICHAEL [place] [facility] Comment Although submitted as an endometrial biopsy, Dr. Gambino's operative note confirms the specimen to be curettings: 01/29/2024 11:22 AM EST [facility] Gross Description A. Endometrium, EMS: Labeled Endo EMS . Received in formalin, on Telfa, is a 1.0 x 0.5 x 0.1 cm aggregate of soft, wyatt-pink to red tissue admixed with blood-streaked mucoid material, which is wrapped in paper and submitted in toto in one cassette, multiple pieces, x2. TS 01/29/2024 11:22 AM [facility] Disclaimer Unless otherwise specified, all tissue is 10% NB formalin fixed and paraffin embedded. 01/29/2024 11:22 AM [facility] Tissue Endometrial structure / Unknown 01/26/2024 12:37 PM EST 01/26/2024 1:28 PM EST us Shantell Gambino MD LAB PATHOLOGY ORDERABLES Fi nal Result [facility] [address] [place] [address], * TH AN LMA(NO CHARGE) (01/26/2024 12:24 [...] Dentition Unchanged: Yes Jose Frausto MD ANESTHESIA ORDERABLES Edited Result - Final * (ABNORMAL) Basic metabolic panel (01/04/2024 11:25 AM EST) Sodium 135 133 - 145 mmol/L LAB CHEMISTRY METHOD 01/04/2024 4:50 PM [facility] Potassium 3.8 3.5 - 5.5 mmol/L LAB CHEMISTRY METHOD 01/04/2024 4:50 PM [facility] Chloride 101 96 - 110 mmol/L LAB CHEMISTRY METHOD 01/04/2024 4:50 PM [facility] CO2 30 21 - 32 mmol/L LAB CHEMISTRY METHOD 01/04/2024 4:50 PM [facility] Anion Gap 4 3 - 11 LAB CHEMISTRY METHOD 01/04/2024 4:50 PM [facility] Glucose 104(H) 70 - 100 mg/dL LAB CHEMISTRY METHOD 01/04/2024 4:50 PM [facility] BUN 21 5 - 25 mg/dL LAB CHEMISTRY METHOD 01/04/2024 4:50 PM [facility] Creatinine 1.11(H) 0.50 - 1.10 mg/dL LAB CHEMISTRY METHOD 01/04/2024 4:50 PM [facility] eGFR 51(L) >=60 mL/min/1. 73m2 LAB CHEMISTRY METHOD 01/04/2024 4:50 PM [facility] Comment:Calculation based on the??Chronic Kidney Disease Epidemiology Collaboration (CKD-EPI) equation refit??without adjustment for race. BUN/Creatinine Ratio 18.9 LAB CHEMISTRY METHOD 01/04/2024 4:50 PM [facility] Calcium 9.6 8.5 - 10.5 mg/dL LAB CHEMISTRY METHOD 01/04/2024 4:50 PM [facility] Blood Venous blood specimen / Unknown Venipuncture / Unknown 01/04/2024 11:25 AM EST 01/04/2024 11:26 AM EST us Alex Blackwell MD LAB BLOOD ORDERABLES Final Result [facility] [address] [place] [address], * COLONOSCOPY (12/07/2023 4:44 PM EDT) Anatomical Region Laterality Modality Endoscopy us Historical Provider GI~PROCEDURE ORDERABLES F inal Result * (ABNORMAL) Lipid panel (03/24/2023) LDL/HDL Ratio 2 0 - 4 Triglycerides 93 0 - 150 mg/dL Cholesterol 286(A) 0 - 200 mg/dL HDL 121 >=40 mg/dL LDL Cholesterol 147(A) 0 - 100 mg/dL Blood Venous blood specimen / Unknown us Historical Provider LAB BLOOD ORDERABLES Lisandra l Result * DXA BONE DENSITY STUDY 1+ SITS [...] should be classified as having osteoporosis. [facility] Department of Internal Medicine recommends using National [...] the World Health Organization criteria, Kacey Kate shouldbe classified as having osteoporosis. [facility] Department of Internal Medicine recommendsusing National Osteoporosis [...] of fracture risk by FRAX. 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
== END 2024-04-24 09:51 | disposition home or self-care (01) ==
PROVIDERS: PCP Internal Medicine; Visit Provider Internal Medicine
DX: G89.4 Chronic pain syndrome (principal); Z79.891 Long term (current) use of opiate analgesic
CPT/HCPCS: 99213

== ENCOUNTER → 2024-04-24 09:26 | Outpatient (BNVA) | payer OTHER, SELFPAY | PROVIDERS: PCP Internal Medicine; Visit Provider Internal Medicine ==

== ENCOUNTER 2024-05-24 09:29 | Outpatient (AMB) | payer OTHER, SELFPAY ==
[2024-05-24 09:40] VITALS: BP 145/67; PULSE 72; O2SAT 98; BMI 18.5
--- NOTE | 2024-05-24 09:40 | MHC.OFFVIS ---
Vital Signs 05/24/24 09:40 Height 5 ft 2 in Weight 101 lb BMI 18.5 BP 145/67 H Blood Pressure Location Lt brachial Position Sitting Pulse 72 Pulse Source Pulse Oximeter Pulse Oximetry (%) 98 Oxygen Delivery Method Room Air Intake Visit Reasons: PILL COUNT Co Supervisor Grounds And Landscape Required: No Allergies codeine [CODEINE] Allergy (Unknown, Verified 05/24/24 09:41) NAUSEA & VOMITING Antihistamines - Alkylamine Adverse Reaction (Severe, Verified 05/24/24 09:41) heart palpitations Medication List - Last Reconciled 05/24/24 by Cherelle Mckenna, ASSISTANT SUPERINTENDENT FOR CURRICULUM alendronate 70 mg PO QWEEK atorvastatin 20 mg PO DAILY calcium carbonate-vitamin D3 600 mg-10 mcg (400 unit) 1 tab PO BID citalopram 40 mg PO DAILY diltiazem HCl ER 120 mg PO DAILY flecainide 100 mg PO BID fluticasone propionate 50 mcg/actuation intranasal gabapentin 300 mg PO BEDTIME 30 days magnesium oxide 400 mg PO DAILY naloxone 4 mg/actuation (Narcan) 4 mg intranasal Q2M 1 day oxycodone 15 mg PO QID PRN 30 days HPI Comments Details: Kacey presents to the office for follow up chronic pain and chronic opioid therapy management. Patient is prescribed oxycodone 15mg, take 1 tablet four times daily. She arrived today with the expectation of having 64 pills, she presented 64 pills which were counted in the presence of two staff members and returned to the patient in the original prescription bottle. This demonstrates responsible attitude toward patient's opioid medications. Last dose of pain medication was taken today at 5am. Denies side effects including somnolence, constipation, itching, dyspnea, rash, dizziness or weakness. Patient had extensive oral surgery 3 days ago and was given a 3 day prescription for percocet. She has a follow up with dentist today. Still having pain and some difficulties with her partial implant. [facility] Medical History (Updated 08/19/22 @ 09:39 by Victor Manuel Mckeon MD) Insomnia Restless legs syndrome (RLS) Clostridium difficile colitis Opioid dependence Depression Lumbar radiculitis Osteoporosis Atrial tachycardia Anxiety Fatigue Heart palpitations Arthritis Restless leg Surgical History History of creation of ostomy History of partial colectomy Family History Family/Other Alzheimer disease Social History Alcohol intake: never Patient Tobacco Use Status: Former Tobacco user Substance Use Type: Prescription Drugs Review of Systems Const All systems reviewed & are unremarkable except as noted in HPI and below Physical Exam Vital Signs: Last Vital Signs Pulse 72 05/24/24 09:40 BP 145/67 H 05/24/24 09:40 Pulse Ox 98 05/24/24 09:40 Oxygen Delivery Method Room Air 05/24/24 09:40 BMI result Body Mass Index 18.5 General: awake, alert, oriented. Answers questions appropriately. Fully engaged in examination. Skin: warm, dry, intact HEENT: Normocephalic. Hearing intact. Cardiac: External chest normal in appearance. Respiratory: No cough, audible wheezing or stridor. Abdomen: without gross distension. MS: No obvious swelling or deformities. Able to transition from sit to stand unassisted. Neurological: Oriented to person, place, time and situation. Thought process intact. No gait abnormalities appreciated. Psychiatric: Appropriate mood and affect. Good judgment and insight. Assessment & Plan Assessment & Plan (1) care home current use of opiate analgesic: Code(s): Z79.891 - terminal gauger (current) use of opiate analgesic Category: Medical (2) Restless legs syndrome (RLS): Code(s): G25.81 - Restless legs syndrome Category: Medical (3) Pain syndrome, chronic: Code(s): G89.4 - Chronic pain syndrome Category: Medical Plan Masspat was reviewed and without concerns. No obvious signs of diversion, abuse or misuse of the opioid medications. Will send in prescription for Oxycodone 15mg po QID with an advanced date of 06/09/24. Patient aware that she cannot fill prescriptions from other providers without notifying our office ahead of time. Reminded of the terms of our opioid contract and potential for suspension. All questions and concerns have been answered and patient agrees with the plan. Follow-up in the office in 1 month, sooner if needed. Medications: Refilled oxycodone Partial Fill upon patient request. 15 mg PO QID PRN 120 tabs 0RF pain, severe 30 days G89.4 - Chronic pain syndrome, M54.16 - Radiculopathy, lumbar region Coding Level of Care Code Est Pt Level 4 (46933) Complex EM visit Add On G2211 Diagnoses care home current use of opiate analgesic Z79.891 Restless legs syndrome (RLS) G25.81 Pain syndrome, chronic G89.4
--- OUTSIDE RECORDS SUMMARY | 2024-05-24 10:24 | XMS_ITS | Clinical Summary ---
Author Organization [facility] Address [address] [place] [address] Phone Care Team Providers Care Tow Bar Driver Name Role Phone Alex Blackwell MD Primary [...] hours) for up to 360 days. Active magnesium oxide (MAG-OX) 400 mg (241.3 [...] DAY. 90 tablet 1 03/27/19 25 Active venlafaxine XR (EFFEXOR-XR) 37.5 mg 24 hr capsule TAKE 1 CAPSULE BY MOUTH 1 TIME EACH DAY. DO NOT CRUSH OR CHEW. 90 capsule 1 04/26/19 25 Active venlafaxine XR (EFFEXOR-XR) 37.5 mg 24 hr capsule Take 1 capsule (37.5 mg total) by mouth 1 (one) time each day. Do not crush or chew. 90 each 1 12/28/19 24 025 Discontinued Active Problems Problem [...] take NSAIDS. She was encouraged to ask restaurant hostess if one time pre-procedure dose would be OK. She is on Oxycodone chronically. We also discussed option for placement of paracervical block for pain control. All questions answered. CKD (chronic kidney disease) stage 2, GFR 60-89 ml/min 12/15/2021 Osteopenia 12/15/2021 Primary hypertension 12/15/2021 Restless leg syndrome 12/15/2021 Elevated blood pressure reading 04/15/2021 Palpitations 04/15/2021 Chronic pain syndrome 09/18/2020 Overview (11/21/2023): [facility] Opioid dependence, daily use 09/18/2020 Fatigue 02/27/2020 Anxiety 07/28/2017 Atrial tachycardia 07/28/2017 Ileostomy status 08/30/2015 Pseudomembranous colitis 08/30/2015 Overview (11/21/2023): Colectomy 08/20/2015, Dr. Izquierdo Mixed hyperlipidemia 11/07/2014 Actinic keratoses 07/17/2013 Overview (11/21/2023): Actinic keratoses Osteoporosis 05/26/2012 Overview (11/21/2023): DXA 03/13/19 Left hip- -2.5 Lumbar spine- -1.3 Radiculitis, lumbosacral 03/12/2011 Overview (11/21/2023): Follow up with [facility]. Receiving oxycodone and Belbuca patches from specialist office for pain control. Lumbar radiculitis 01/04/2007 Anxiety and depression 05/16/2005 Immunizations Name Administration Dates Next Due Pneumococcal conjugate 13 va lent (Prevnar 13, PCV13) 2mo and older 12/13/2017 Tdap Tetanus diptheria acell ular pertussis (Boostrix; Adacel) 7yo and older 10/11/2022,10/05/2011 Surgical History Surgery Date Site/Laterality Comments DENTAL SURGERY PROCEDURE: [place] UNLISTED PROCEDURE DENTOALVEOLAR STRUCTURES OTHER SURGICAL HISTORY 1975 PROCEDURE: [place] LIG/TRNSXJ FLP TUBE ABDL/VAG APPR UNI/BI TONSILLECTOMY ADENOIDECTOMY, BILATERAL MYRINGOTOMY AND TUBES PROCEDURE: [place] TONSILLECTOMY & ADENOIDECTOMY <AGE 12 APPENDECTOMY 1960 PROCEDURE: [place] APPENDECTOMY OTHER SURGICAL HISTORY 08/20/2015 PROCEDURE: ---- OTHER ----; COMMENT: total colectomy BREAST SURGERY late 80s Left PROCEDURE: [place] UNLISTED PROCEDURE BREAST; COMMENT: benign OTHER SURGICAL HISTORY 2015 PROCEDURE: [place] COLECTOMY PRTL W/RMVL TERMINAL ILEUM & ILEOCOLOS; [...] care for your loved ones. For example, early childhood education specialist or elderly care for an older [...] 8:30 AM EDT Office Visit Adult Medicine [place] - [address] [phone] Graice Roe PA [address] [place] [phone] 09/26/2024 9:50 AM EDT Appointment Radiology Department - [address] [phone] Health Maintenance Due Date Last Done Comments Zoster Vaccines (1 of 2) 1964 Pneumococcal Vaccine: 50+ Years (2 of 2 - PPSV23) 02/07/2018 12/13/2017 COVID-19 Vaccine (3 - Modern a risk series) 09/14/2020 08/17/2020, 07/20/2020 RSV Immunization Adult Patients (1 - 1-dose 75+ series) 2021 Colorectal Cancer Screening: Stool Based Tests (FOBT/FIT) 01/29/2022 Osteoporosis Screening (Bone Density Screening) 01/07/2024 01/06/2023, 03/13/2019, 05/17/2016 Influenza Vaccine (Season Ended) 2024 Depression Screening 12/27/2024 12/28/2023 Social Influencers of [...] Procedure Name Priority Date/Time Associated Diagnosis Comments BASIC METABOLIC PANEL Routine 01/04/2024 11:25 AM [...] Recently Relevant to Health Maintenance Results * (ABNORMAL) Basic metabolic panel (01/04/2024 11:25 AM EST) Sodium 135 133 - 145 mmol/L LAB CHEMISTRY METHOD 01/04/2024 4:50 PM [facility] Potassium 3.8 3.5 - 5.5 mmol/L LAB CHEMISTRY METHOD 01/04/2024 4:50 PM [facility] Chloride 101 96 - 110 mmol/L LAB CHEMISTRY METHOD 01/04/2024 4:50 PM [facility] CO2 30 21 - 32 mmol/L LAB CHEMISTRY METHOD 01/04/2024 4:50 PM [facility] Anion Gap 4 3 - 11 LAB CHEMISTRY METHOD 01/04/2024 4:50 PM [facility] Glucose 104(H) 70 - 100 mg/dL LAB CHEMISTRY METHOD 01/04/2024 4:50 PM [facility] BUN 21 5 - 25 mg/dL LAB CHEMISTRY METHOD 01/04/2024 4:50 PM [facility] Creatinine 1.11(H) 0.50 - 1.10 mg/dL LAB CHEMISTRY METHOD 01/04/2024 4:50 PM [facility] eGFR 51(L) >=60 mL/min/1. 73m2 LAB CHEMISTRY METHOD 01/04/2024 4:50 PM [facility] Comment:Calculation based on the??Chronic Kidney Disease Epidemiology Collaboration (CKD-EPI) equation refit??without adjustment for race. BUN/Creatinine Ratio 18.9 LAB CHEMISTRY METHOD 01/04/2024 4:50 PM [facility] Calcium 9.6 8.5 - 10.5 mg/dL LAB CHEMISTRY METHOD 01/04/2024 4:50 PM [facility] Blood Venous blood specimen / Unknown Venipuncture / Unknown 01/04/2024 11:25 AM EST 01/04/2024 11:26 AM EST Alex Blackwell MD LAB BLOOD ORDERABLES Final Result [facility] [address] [place] [address], * COLONOSCOPY (12/07/2023 4:44 PM EDT) Anatomical Region Laterality Modality Endoscopy Historical Provider GI~PROCEDURE ORDERABLES F inal Result * (ABNORMAL) Lipid panel (03/24/2023) LDL/HDL Ratio 2 0 - 4 Triglycerides 93 0 - 150 mg/dL Cholesterol 286(A) 0 - 200 mg/dL HDL 121 >=40 mg/dL LDL Cholesterol 147(A) 0 - 100 mg/dL Blood Venous blood specimen / Unknown Historical Provider LAB BLOOD ORDERABLES Lisandra l [...] should be classified as having osteoporosis. [facility] Department of Internal Medicine recommends using National [...] Kate shouldbe classified as having osteoporosis. [facility] Department of Internal Medicine recommendsusing National Osteoporosis [...] risk by FRAX. Gracie MCKINNON IMG DXA PROCEDURES Final Result * Hepatitis C Screening (10/09/2012) [facility] Hepatitis C Screening Abstracted Historical Provider MD HEALTH MAINTENANCE Final Result from Last 3 Months or Most Recently Relevant to Health Maintenance [place] [phone] [facility] Advance Directives Documents on File Type Date Recorded Patient Plane Tender Expl anation Health Care Decision (hx) 01/29/2020 [...] (hx) 01/28/2020 AD ARNOLD DIRECTIVE Care Teams Tow Bar Driver Relationship Specialty Start Date End Date Alex Blackwell MD [address] [place] [address] PCP - General Internal Medicine 09/28/21
== END 2024-05-24 09:48 | disposition home or self-care (01) ==
LOC: HO.PMC 09:30
PROVIDERS: PCP Internal Medicine; Visit Provider Registered Nurse Emergency
DX: Z79.891 Long term (current) use of opiate analgesic (principal); G25.81 Restless legs syndrome; G89.4 Chronic pain syndrome
CPT/HCPCS: 99214

== ENCOUNTER → 2024-05-24 09:29 | Outpatient (BNVA) | payer OTHER, SELFPAY | PROVIDERS: PCP Internal Medicine; Visit Provider Registered Nurse Emergency ==

== ENCOUNTER 2024-06-21 09:27 | Outpatient (AMB) | payer OTHER, SELFPAY ==
--- NOTE | 2024-06-21 09:30 | MHC.OFFVIS ---
Vital Signs 06/21/24 09:38 Height 5 ft 2 in Weight 100 lb 8 oz BMI 18.4 BP 172/77 H Blood Pressure Location Lt brachial Position Sitting Pulse 68 Pulse Source Pulse Oximeter Pulse Oximetry (%) 98 Oxygen Delivery Method Room Air Intake Visit Reasons: Pill count Intake Note: Kacey comes in today for a pill count to oxycodone, patient should have 72 tablets and presents with 72 tablets which she last took today 06/21/24 at 9am. Pain today 5/10 Senior Quality Methods Specialist Required: No Accompanied by: Self / Same As Patient Allergies codeine [CODEINE] Allergy (Unknown, Verified 06/21/24 09:39) NAUSEA & VOMITING Antihistamines - Alkylamine Adverse Reaction (Severe, Verified 06/21/24 09:39) heart palpitations HPI Comments Details: Kacey presents to the office for follow up chronic pain and chronic opioid therapy management. Patient is prescribed oxycodone 15mg, take 1 tablet four times daily. She arrived today with the expectation of having 72 pills, she presented 72 pills which were counted in the presence of two staff members and returned to the patient in the original prescription bottle. This demonstrates responsible attitude toward patient's opioid medications. Last dose of pain medication was taken today at 9am. Pain today rated as 5/10. Denies side effects including somnolence, constipation, itching, dyspnea, rash, dizziness or weakness. Patient reports minimal improvement with Gabapentin that she takes at bedtime, does report some brain fog with the medication which she does not like. Inquiring about alternative options. [facility] Medical History (Updated 08/19/22 @ 09:39 by Victor Manuel Mckeon MD) Insomnia Restless legs syndrome (RLS) Clostridium difficile colitis Opioid dependence Depression Lumbar radiculitis Osteoporosis Atrial tachycardia Anxiety Fatigue Heart palpitations Arthritis Restless leg Surgical History History of creation of ostomy History of partial colectomy Family History Family/Other Alzheimer disease Social History Alcohol intake: never Patient Tobacco Use Status: Former Tobacco user Substance Use Type: Prescription Drugs Review of Systems Const All systems reviewed & are unremarkable except as noted in HPI and below Physical Exam Vital Signs: Last Vital Signs Pulse 68 06/21/24 09:38 BP 172/77 H 06/21/24 09:38 Pulse Ox 98 06/21/24 09:38 Oxygen Delivery Method Room Air 06/21/24 09:38 BMI result Body Mass Index 18.4 General: awake, alert, oriented. Answers questions appropriately. Fully engaged in examination. Skin: warm, dry, intact HEENT: Normocephalic. Hearing intact. Cardiac: External chest normal in appearance. Respiratory: No cough, audible wheezing or stridor. Abdomen: without gross distension. MS: No obvious swelling or deformities. Able to transition from sit to stand unassisted. Neurological: Oriented to person, place, time and situation. Thought process intact. No gait abnormalities appreciated. Psychiatric: Appropriate mood and affect. Good judgment and insight. 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 No obvious signs of diversion, abuse or misuse of the opioid medications. Will send in prescription for Oxycodone 15mg po QID with an advanced. Discontinue Gabapentin QHS, new prescription for Lyrica 25mg PO QHS sent to pharmacy. Patient instructed on cautions for use. All questions and concerns have been answered and patient agrees with the plan. Follow-up in the office in 1 month, sooner if needed. Medications: New pregabalin Discontinue gabapentin prior to starting this medication 25 mg PO BEDTIME 30 caps 0RF Refilled oxycodone Partial Fill upon patient request. 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
[2024-06-21 09:38] VITALS: BP 172/77; PULSE 68; O2SAT 98; BMI 18.4
--- OUTSIDE RECORDS SUMMARY | 2024-06-21 10:14 | XMS_ITS | Clinical Summary ---
Author Organization [facility] Address [address] [place] [address] Phone Care Team Providers Care School Vocational Educator Name Role Phone Alex Blackwell MD Primary Care Provider Allergies Active Allergy Reactions Criticality Noted Date Comments Codeine Nausea And Vomiting 01/08/2024 Medications alendronate (FOSAMAX) 70 mg tablet Take 1 Tablet by mouth every 7 days. 3 Active calcium carbonate-vitam in D (Calcium with Vitamin D) 600 mg-10 mcg (400 unit) per tablet Take 1 Tablet by mouth 2 times daily. 3 Active dilTIAZem XR (DILACOR XR) 120 mg 24 hr capsule 1 capsule (120 mg total) 1 (one) time each day. 3 Active flecainide (TAMBOCOR) 100 mg tablet TAKE 1 TABLET TWICE A DAY 4 Active gabapentin (NEURONTIN) 300 mg capsule TAKE 1 CAPSULE BY MOUTH AT 10PM AND 1 CAPSULE BY MOUTH AT 1130PM NEEDED FOR PAIN 4 Active oxyCODONE (ROXICODONE) 15 mg immediate release tablet Take 1 tablet (15 mg total) by mouth 4 (four) times a day if needed. 1 Active lactose-reduced food (BOOST ORAL) Take 1 Can by mouth 2 times daily. MARCOS- 6 months 1 can twice a day 60 cans per month with 5 refills 3 Active dilTIAZem (CARDIZEM) 30 mg immediate release tablet Take 1 Tablet by mouth as needed (prn prolonged palpitations can take every 6 hours) for up to 360 days. Active magnesium oxide (MAG-OX) 400 mg (241.3 elemental magnesium) tablet Take 1 tablet (400 mg total) by mouth 2 (two) times a day. 180 tablet 1 4 Active citalopram (CeleXA) 40 mg tablet TAKE 1 TABLET BY MOUTH EVERY DAY 90 tablet 1 4 Active lisinopriL (PRINIVIL,ZESTR IL) 10 mg tablet TAKE 1 TABLET BY MOUTH 1 TIME EACH DAY. 90 tablet 1 5 Active venlafaxine XR (EFFEXOR-XR) 37.5 mg 24 hr capsule TAKE 1 CAPSULE BY MOUTH 1 TIME EACH DAY. DO NOT CRUSH OR CHEW. 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 She was encouraged to ask adjunct latin professor if one time pre-procedure dose would be OK. She is on Oxycodone chronically. We also discussed option for placement of paracervical block for pain control. All questions answered. CKD (chronic kidney disease) stage 2, GFR 60-89 ml/min 12/15/2021 Osteopenia 12/15/2021 Primary hypertension 12/15/2021 Restless leg syndrome 12/15/2021 Elevated blood pressure reading 04/15/2021 Palpitations 04/15/2021 Chronic pain syndrome 09/18/2020 Overview (11/21/2023): [facility] Opioid dependence, daily use ([facility] V24, [facility]/ [facility] V28) 09/18/2020 Fatigue 02/27/2020 Anxiety 07/28/2017 Atrial tachycardia ([facility] V24) 07/28/2017 Ileostomy status ([facility] V24, [facility] V28) 08/20 Pseudomembranous colitis 08/30/2015 Overview (11/21/2023): Colectomy 08/20/2015, Dr. Izquierdo Mixed hyperlipidemia 11/07/2014 Actinic keratoses 07/17/2013 Overview (11/21/2023): Actinic keratoses Osteoporosis 05/26/2012 Overview (11/21/2023): DXA 03/13/19 Left hip- -2.5 Lumbar spine- -1.3 Radiculitis, lumbosacral 03/12/2011 Overview (11/21/2023): Follow up with [facility]. Receiving oxycodone and Belbuca patches from specialist office for pain control. Lumbar radiculitis 01/04/2007 Anxiety and depression 05/16/2005 Encounters Date Type Department Care Team Description 06/14/2024 Telephone Adult Medicine [address] [phone] Alex Blackwell MD Fitting for DME from Last 3 Months Immunizations Name Administration Dates Next Due Pneumococcal conjugate 13 va lent (Prevnar 13, PCV13) 2mo and older 12/13/2017 Tdap Tetanus diptheria acell ular pertussis (Boostrix; Adacel) 7yo and older 10/11/2022,10/05/2011 Surgical History Surgery Date Site/Laterality Comments DENTAL SURGERY PROCEDURE: CO UNLISTED PROCEDURE DENTOALVEOLAR STRUCTURES OTHER SURGICAL HISTORY 1974 PROCEDURE: CO LIG/TRNSXJ FLP TUBE ABDL/VAG APPR UNI/BI TONSILLECTOMY ADENOIDECTOMY, BILATERAL MYRINGOTOMY AND TUBES PROCEDURE: CO TONSILLECTOMY & ADENOIDECTOMY <AGE 13 APPENDECTOMY 1960 PROCEDURE: CO APPENDECTOMY OTHER SURGICAL HISTORY 08/20/2015 PROCEDURE: ---- OTHER ----; COMMENT: total colectomy BREAST SURGERY late 80s Left PROCEDURE: CO UNLISTED PROCEDURE BREAST; COMMENT: benign OTHER SURGICAL HISTORY 2015 PROCEDURE: CO COLECTOMY PRTL W/RMVL TERMINAL ILEUM & ILEOCOLOS; COMMENT: related to Cdiff colitis BREAST BIOPSY Left PROCEDURE: BX BREAST; PERC NEEDLE CORE W/IMAG GUID; COMMENT: benign-in the s FLEXIBLE SIGMOIDOSCOPY Medical History Medical History Date Comments Lumbago 05/16/2005 DX:Lumbago Depressive disorder, not els ewhere classified 05/16/2005 DX:Depressive disorder, not elsewhere classified Actinic keratosis, hx of DX:Acti nam keratosis, hx of Afib ([facility] V24, [facility] V28) DX:Afib ([facility]); COMMENT: takes Cardizem S/P partial colectomy DX:S/P par [...] for your loved ones. For example, child care center administrator or elderly care for an older adult? [...] 8:30 AM EDT Office Visit Adult Medicine [address] [phone] Gracie Roe PA [address] [place] [address] 07/04/2024 9:40 AM EDT Office Visit [facility] [address] [address] Ankita Baldwin PA [address] [place] [address] 09/26/2024 9:50 AM EDT Appointment Radiology Department - [address] [phone] Health Maintenance Due Date Last Done Comments Hepatitis A Vaccines (1 of 2 - Risk 2-dose series) 1964 Zoster Vaccines (1 of 2) 1964 Pneumococcal [...] age to complete this topic Meningococcal B Vaccine Aged Out No l onger eligible based on patient's age to complete this topic RSV Immunization Patients Under 20 months Aged Out No longer eligible based on patient's age to complete this topic Varicella Vaccines Aged Out No longer eligible based on patient's age to complete this topic Procedures Procedure Name Priority Date/Time Associated Diagnosis Comments BASIC METABOLIC PANEL Routine 01/04/2024 11:25 AM EST Primary hypertension Ileostomy status (CMS/HCC V24, CMS/HCC V28) Hypomagnesemia CKD (chronic kidney disease) stage 2, [...] mmol/L LAB CHEMISTRY METHOD 01/04/2024 4:50 PM [facility] Potassium 3.8 3.5 - 5.5 mmol/L LAB CHEMISTRY METHOD 01/04/2024 4:50 PM [facility] Chloride 101 96 - 110 mmol/L LAB CHEMISTRY METHOD 01/04/2024 4:50 PM [facility] CO2 30 21 - 32 mmol/L LAB CHEMISTRY METHOD 01/04/2024 4:50 PM [facility] Anion Gap 4 3 - 11 LAB CHEMISTRY METHOD 01/04/2024 4:50 PM [facility] Glucose 104(H) 70 - 100 mg/dL LAB CHEMISTRY METHOD 01/04/2024 4:50 PM [facility] BUN 21 5 - 25 mg/dL LAB CHEMISTRY METHOD 01/04/2024 4:50 PM [facility] Creatinine 1.11(H) 0.50 - 1.10 mg/dL LAB CHEMISTRY METHOD 01/04/2024 4:[address] [facility] eGFR 51(L) >=60 mL/min/1. 73m2 LAB CHEMISTRY METHOD 01/04/2024 4:[address] [facility] Comment:Calculation based on the??Chronic Kidney Disease Epidemiology Collaboration (CKD-EPI) equation refit??without adjustment for race. BUN/Creatinine Ratio 18.9 LAB CHEMISTRY METHOD 01/04/2024 4:[address] [facility] Calcium 9.6 8.5 - 10.5 mg/dL LAB CHEMISTRY METHOD 01/04/2024 4:[address] [facility] Blood Venous blood specimen / Unknown Venipuncture / Unknown 01/04/2024 11:25 AM EST 01/04/2024 11:26 AM EST Alex Blackwell MD LAB BLOOD ORDERABLES Final Result [facility] [address] [place] [address], * COLONOSCOPY (12/07/2023 4:44 PM EDT) Anatomical [...] should be classified as having osteoporosis. The [facility] Department of Internal Medicine recommends using National [...] Kate shouldbe classified as having osteoporosis. The [facility] Department of Internal Medicine recommendsusing National Osteoporosis [...] Final Result * Hepatitis C Screening (10/09/2012) [facility] Hepatitis C Screening Abstracted Historical Provider HEALTH MAINTENANCE Final Result from Last 3 Months or Most Recently Relevant to Health Maintenance Insurance [facility] Advance Directives Documents on File Type Date Recorded Patient Supply Coordinator Expl anation Health Care Decision (hx) 01/29/2020 [...] (hx) 01/28/2020 AD ARNOLD DIRECTIVE Care Teams School Vocational Educator Relationship Specialty Start Date End Date Alex Blackwell MD [address] [place] [address] PCP - General Internal Medicine 09/28/21
--- OUTSIDE RECORDS SUMMARY | 2024-06-21 10:14 | XMS_ITS | Encounter Summary ---
Author Organization [facility] Address [address] [place] [address] Care Team Providers Care Frit Mixer And Burner Name Role Phone Alex Blackwell MD Primary Care Provider [phone] Reason for Visit * Reason Onset Date Comments Fitting for DME 06/14/2024 Encounter Details Date Type Department Care Team ([facility] Contact Info) Description 06/14/2024 Telephone Adult Medicine [address] [phone] Alex Blackwell MD [address] [place] [id number] Fitting for DME Social History Tobacco Use Types Packs/Day Years Used Date Smoking Tobacco: Former Cigarettes Q uit: 04/07/1985 Smokeless Tobacco: Never Alcohol Use Standard Drinks/Week Comments No 0 [...] your loved ones. For example, child care centre director or elderly care for an older adult? [...] Orientation Straight 12/21/2023 4: 33 PM EDT documented as of this encounter Progress Notes * Radha Mon LPN - 06/17/2024 10:51 AM EDT Form signed and faxed to trey @ [phone] * Radha Mon LPN - 06/14/2024 12:23 PM EDT Form to Dr Blackwell to sign * Delmy Garza - 06/14/2024 11:14 AM EDT DME REQUEST Name of Product: Ext Wear Ost Skin [employer] Specific information about product >4 sq # Needed 60/90 days Reason patient is asking for this supply? Have you received this supply before? If yes , when?: Have you discussed the need for this supply with a provider at a recent visit? If yes, with who andwhen? When completed: Fax to other office/MD/pharmacy at fax # Trey [phone] Have you told the patient it will take 7-10 days for completion of this request? NO documented in this encounter Plan of Treatment Upcoming Encounters Date Type Department Care Team (Late st Contact Info) Description 06/24/2024 8:30 AM EDT Office Visit Adult Medicine [address] [phone] Gracie Roe PA [address] [place] [address] 07/04/2024 9:40 AM EDT Office Visit [facility] [address] [facility] [address] [place] [address] Ankita Baldwin PA [address] [place] [address] 09/26/2024 9:50 AM EDT Appointment Radiology Department [address] [phone] documented as of this encounter Visit Diagnoses Not on filedocumented in this encounter Additional Health Concerns Assessment Noted Time PHQ-9 Depression Total Score: 12 024 6:06 AM EST documented as of this encounter Care Teams Frit Mixer And Burner Relationship Specialty Start Date End Date Alex Blackwell MD [address] [place] [address] PCP - General Internal Medicine 09/28/21 documented as of this encounter
== END 2024-06-21 09:52 | disposition home or self-care (01) ==
LOC: HO.PMC 09:28
PROVIDERS: PCP Internal Medicine; Visit Provider Registered Nurse Emergency
DX: Z79.891 Long term (current) use of opiate analgesic (principal); G25.81 Restless legs syndrome; G89.4 Chronic pain syndrome
CPT/HCPCS: 99213

== ENCOUNTER → 2024-06-21 09:27 | Outpatient (BNVA) | payer OTHER, SELFPAY | PROVIDERS: PCP Internal Medicine; Visit Provider Registered Nurse Emergency ==

== ENCOUNTER 2024-07-17 09:28 | Outpatient (AMB) | payer OTHER, SELFPAY ==
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
[2024-07-17 09:34] VITALS: BP 142/74; PULSE 70; RESP 18; O2SAT 98
--- OUTSIDE RECORDS SUMMARY | 2024-07-17 10:09 | XMS_ITS | Clinical Summary ---
Author Organization [facility] Address [address] [place] [phone] Phone Care Team Providers Care Human Resources Team Member Name Role Phone Alex Blackwell MD Primary Care Provider Allergies Active Allergy Reactions Criticality Noted Date Comments Codeine Nausea And Vomiting 01/08/2024 Medications alendronate (FOSAMAX) 70 mg tablet 3 Active calcium carbonate-javad min D (Calcium with Vitamin D) 600 mg-10 mcg (400 unit) per tablet Take 1 Tablet by mouth 2 times daily. 3 Active dilTIAZem XR (DILACOR XR) 120 mg 24 hr capsule 1 capsule (120 mg total) 1 (one) time each day. 3 Active flecainide (TAMBOCOR) 100 mg tablet TAKE 1 TABLET TWICE A DAY 4 Active oxyCODONE (ROXICODONE) 15 mg immediate release tablet Take 1 tablet (15 mg total) by mouth 4 (four) times a day if needed. 1 Active lactose-reduce d food (BOOST ORAL) Take [...] DAY 90 tablet 1 4 Active lisinopriL (PRINIVIL,ZEST RIL) 10 mg tablet TAKE 1 TABLET BY MOUTH 1 TIME EACH DAY. 90 tablet 1 5 Active venlafaxine XR (EFFEXOR-XR) 37.5 mg 24 hr capsule TAKE 1 CAPSULE BY MOUTH 1 TIME EACH DAY. DO NOT CRUSH OR CHEW. 90 capsule 1 5 Active gabapentin (NEURONTIN) 300 mg capsule TAKE 1 CAPSULE BY MOUTH AT 10PM AND 1 CAPSULE BY MOUTH AT 1130PM NEEDED FOR PAIN 4 025 Discontin ued(Ineff ective) Active Problems Problem Noted Date Diagnosed Date S/P partial colectomy 01/26/2024 PSVT (paroxysmal supraventri cular tachycardia) ([facility] V24) 11/21/2023 Hypomagnesemia 06/21/2023 Bite by animal 06/20/2023 Rectal discharge 04/18/2023 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 02/03/2023 Stage 3a chronic kidney disease ([facility] V24, CM S/[facility] V28) 05/25/2022 Postmenopausal bleeding 02/01/2022 Overview (11/21/2023): [...] take NSAIDS. She was encouraged to ask butter printer if one time pre-procedure dose would be OK. She is on Oxycodone chronically. We also discussed option for placement of paracervical block for pain control. All questions answered. CKD (chronic kidney disease) stage 2, GFR 60-89 ml/min 12/15/2021 Osteopenia 12/15/2021 Primary hypertension 12/15/2021 Restless leg syndrome 12/15/2021 Elevated blood pressure reading 04/15/2021 Palpitations 04/15/2021 Chronic pain syndrome 09/18/2020 Overview (11/21/2023): [facility] Opioid dependence, daily use ([facility] V24, [facility] V28) 09/18/2020 Fatigue 02/27/2020 Anxiety 07/28/2017 Atrial tachycardia ([facility] V24) 07/28/2017 Ileostomy status ([facility] V24, [facility] V28) 08/20 Pseudomembranous colitis 08/30/2015 Overview (11/21/2023): Colectomy 08/20/2015, Dr. Izquierdo Mixed hyperlipidemia 11/07/2014 Actinic keratoses 07/17/2013 Overview (11/21/2023): Actinic keratoses Osteoporosis 05/26/2012 Overview (11/21/2023): DXA 03/13/19 Left hip- -2.5 Lumbar spine- -1.3 Radiculitis, lumbosacral 03/12/2011 Overview (11/21/2023): Follow up with [facility]. Receiving oxycodone and Belbuca patches from specialist office for pain control. Lumbar radiculitis 01/04/2007 Anxiety and depression 05/16/2005 Encounters Date Type Department Care Team Description 07/05/2024 Telephone [facility] [address] [facility] [address] [place] [phone] Ankita Baldwin PA No Show 07/02/2024 11:00 AM EDT Office Visit Adult Medicine [address] [phone] Gracie Roe PA Primary hypertension (Primary Dx); Osteoporosis without current pathological fracture, unspecified osteoporosis type; Anxiety and depression; Mixed hyperlipidemia; Screening for diabetes mellitus; Chronic pain syndrome; Coronary artery disease due to lipid rich plaque; PSVT (paroxysmal supraventricular tachycardia) ([facility] V24) 06/14/2024 Telephone Adult Medicine [address] [phone] Alex Blackwell MD Fitting for DME from Last 3 Months Immunizations Name Administration Dates Next Due Pneumococcal conjugate 13 va lent (Prevnar 13, PCV13) 2mo and older 12/13/2017 Tdap Tetanus diptheria acell ular pertussis (Boostrix; Adacel) 7yo and older 10/11/2022,10/05/2011 Surgical History Surgery Date Site/Laterality Comments DENTAL SURGERY PROCEDURE: [place] UNLISTED PROCEDURE DENTOALVEOLAR STRUCTURES OTHER SURGICAL HISTORY 1974 PROCEDURE: [place] LIG/TRNSXJ FLP TUBE ABDL/VAG APPR UNI/BI TONSILLECTOMY ADENOIDECTOMY, BILATERAL MYRINGOTOMY AND TUBES PROCEDURE: [place] TONSILLECTOMY & ADENOIDECTOMY <AGE 13 APPENDECTOMY 1960 PROCEDURE: [place] APPENDECTOMY OTHER SURGICAL HISTORY 08/20/2015 PROCEDURE: ---- OTHER ----; COMMENT: total colectomy BREAST SURGERY late Left PROCEDURE: [place] UNLISTED PROCEDURE BREAST; COMMENT: [...] of DX:Acti nam keratosis, hx of Afib ([facility] V24, [facility] V28) DX:Afib ([facility]); COMMENT: takes Cardizem S/P partial colectomy DX:S/P [...] ed Within the last 3 months, ho carmen many times did you visit the emergency [...] care for your loved ones. For example, childbirth educator or elderly care for an older adult? [...] Sign Reading Time Taken Comments Blood Pressure 131/72 07/02/2024 10:52 AM EDT Pulse 67 06/24/2024 8:30 AM EDT Temperature 36.6 ??C (97.8 ??F) 07/02/2024 10:52 AM E DT Respiratory Rate 16 06/24/2024 8:30 AM EDT Oxygen Saturation 95% 01/26/2024 1:42 PM EST Inhaled Oxygen Concentration - - Weight 45.8 kg (101 lb) 07/02/2024 10:52 AM EDT Height 157.5 cm (5' 2 ) 07/02/2024 10:52 AM EDT Body Mass Index 18.47 07/02/2024 10:52 AM EDT Plan of Treatment Upcoming Encounters Date Type Department Care Team (Late st Contact Info) Description 09/26/2024 9:50 AM EDT Appointment Radiology Department [address] [phone] 11/13/2024 1:10 PM EDT Office Visit [facility] [address] [facility] [address] [place] [phone] Ankita Baldwin PA [address] [place] [address] 01/07/2025 9:15 AM EST Office Visit Adult Medicine [phone] [place] [phone] Alex Blackwell MD [address] [place] [phone] Health Maintenance Due Date Last Done Comments [...] 03/13/2019, 05/17/2016 Influenza Vaccine (Season Ended) 2024 Social Influencers of Health Screening 12/27/2024 12/28/2023 Hypertension/CHF/CAD Annual BMP Blood Test 01/03/2025 01/04/2024, 05/19/2023 Falls Risk Assessment 01/25/2025 01/26/2024 Depression Screening 06/23/2025 06/23/2024 Cholesterol Screening (Lipid Panel) 03/24/2028 03/24/2023 DTaP,Tdap,and [...] mmol/L LAB CHEMISTRY METHOD 01/04/2024 4:50 PM EST [facility] Potassium 3.8 3.5 - 5.5 mmol/L LAB CHEMISTRY METHOD 01/04/2024 4:50 PM EST [facility] Chloride 101 96 - 110 mmol/L LAB CHEMISTRY METHOD 01/04/2024 4:50 PM [facility] CO2 30 21 - 32 mmol/L LAB CHEMISTRY METHOD 01/04/2024 4:50 PM [facility] Anion Gap 4 3 - 11 LAB CHEMISTRY METHOD 01/04/2024 4:50 PM [facility] Glucose 104(H) 70 - 100 mg/dL LAB CHEMISTRY METHOD 01/04/2024 4:50 PM [facility] BUN 21 5 - 25 mg/dL LAB CHEMISTRY METHOD 01/04/2024 4:50 PM [facility] Creatinine 1.11(H) 0.50 - 1.10 mg/dL LAB CHEMISTRY METHOD 01/04/2024 4:50 PM [facility] eGFR 51(L) >=60 mL/min/1. 73m2 LAB CHEMISTRY METHOD 01/04/2024 4:50 PM [facility] Comment:Calculation based on the??Chronic Kidney Disease Epidemiology Collaboration (CKD-EPI) equation refit??without adjustment for race. BUN/Creatinine Ratio 18.9 LAB CHEMISTRY METHOD 01/04/2024 4:50 PM [facility] Calcium 9.6 8.5 - 10.5 mg/dL LAB CHEMISTRY METHOD 01/04/2024 4:50 PM [facility] Blood Venous blood specimen / Unknown Venipuncture / Unknown 01/04/2024 11:25 AM EST 01/04/2024 11:26 AM EST Alex Blackwell MD LAB BLOOD ORDERABLES Final Result [facility] [address] [place] [address], * COLONOSCOPY (12/07/2023 4:44 PM EDT) Anatomical [...] should be classified as having osteoporosis. The [facility] recommends using [...] Kate shouldbe classified as having osteoporosis. The [facility] of Internal Medicine recommendsusing National [...] Final Result * Hepatitis C Screening (10/09/2012) [facility] Hepatitis C Screening Abstracted Historical Provider MD HEALTH MAINTENANCE Final Result from Last 3 Months or Most Recently Relevant to Health Maintenance Insurance [facility] Advance Directives Documents on File Type Date Recorded Patient Corporate Ethics Officer Expl anation Health Care Decision (hx) 01/29/2020 [...] (hx) 01/28/2020 AD ARNOLD DIRECTIVE Care Teams Human Resources Team Member Relationship Specialty Start Date End Date Alex Blackwell MD [address] [place] [address] PCP - General Internal Medicine 09/28/21
== END 2024-07-17 10:04 | disposition home or self-care (01) ==
LOC: HO.PMC 09:29
PROVIDERS: PCP Internal Medicine; Visit Provider Registered Nurse Emergency
DX: Z79.891 Long term (current) use of opiate analgesic (principal); G25.81 Restless legs syndrome; G89.4 Chronic pain syndrome
CPT/HCPCS: 99214

== ENCOUNTER → 2024-07-17 09:28 | Outpatient (BNVA) | payer OTHER, SELFPAY | PROVIDERS: PCP Internal Medicine; Visit Provider Registered Nurse Emergency ==